=== PATIENT | male | born 1955 | race Caucasian/White ===

== ENCOUNTER 2017-12-26 11:46 | Inpatient (IN) ==
[2017-12-26 12:04] VITALS: BMI 37.7
[2017-12-26] MEDS ORDERED: TYLENOL 325 MG TAB PO STA (12:09)
--- NOTE | 2017-12-26 12:09 | DR.GENAD ---
HPI - PCP Primary Care Physician: maulik riggins - Complaint/Symptoms Chief Complaint Doctors Comments: Patient is complaining of right side pain for the past 12 hours onset last night with cough, cold, fever and wheezing. States his cough is non-productive. States he took a breathing treatment at the house. He stopped smoking in 2011 and denies alcohol usage. He denies chest pain presently. State he has been having swelling of his feet and legs for a while. He denies any recent trauma. Chief Complaint:: family stated he woke up this morning running a fever, coughing and left rib pain from the cough. family stated last time he was like this he had pneumonia - Nurses notes reviewed Nurses Notes Review: Yes - Source History Provided: Patient, Family Member - Mode of Arrival Mode of Arrival: Wheelchair - Timing Onset of Chief Complaint: 12/26/17 Came on: Gradually - Duration Duration: Constant How lon Duration: Hours - Location Location: Right side pain - Severity Severity: Moderate - Modifying Factors Worsens:: movement Improves:: nothing PMH - PMH Past Medical History: Yes Past Medical History: COPD Past Surgical History: Yes - Family History History of Family Medical Conditions: Yes Family Medical History: Hypertension - Social History Does patient currently use any type of tobacco product: No Have you used tobacco products in the last 12 months: No Type of Tobacco Use: None Does any household member use tobacco: No Alcohol Use: Rarely Do you use any recreational Drugs:: No Lives With: Family Lives Where: Home - infectious screening In the last 2 months have you had wt loss of >10#?: NO Have you had fever, night sweats or hemotysis?: No Have you traveled outside the country in the last 6 months?: No Isolation: Standard ROS - Review of Systems Constitutional: No Symptoms Reported, Fever, Weakness Eyes: No Symptoms Reported. negative: See HPI, Eye Pain, Blurred Vision, Tearing, Discharge, Photophobia, Diplopia, Other ENTM: No Symptoms Reported Respiratoy: No Symptoms Reported, Non-Productive Cough, Short of Breath, Wheezing Cardiovascular: No Symptoms Reported. negative: See HPI, Chest Pain, Edema, Palpitations, Syncope, Cyanosis, Skin Mottling, Other Gastrointestinal/Abdominal: No Symptoms Reported. negative: See HPI, Abdominal Pain, Constipation, Diarrhea, Nausea, Vomiting, Food Intolerance, Other Genitourinary: No Symptoms Reported. negative: See HPI, Discharge, Dysuria, Frequency, Hematuria, Pain, Bleeding, Other Neurological: No Symptoms Reported Musculoskeletal: No Symptoms Reported, Right, Chest wall Integumentary: No Symptoms Reported. negative: See HPI, Change in Color, Change in Hair/Nails, Dryness, Lesions, Lumps, Rash, Itching, Wound, Bruises, Juandice, Other Hematologic/Lymphatic: No Symptoms Reported. negative: See HPI, Anemia, Blood Clots, Easy Bleeding, Easy Bruising, Swollen Glands, Lymphadenopathy, Other Endocrine: No Symptoms Reported Psychiatric: No Symptoms Reported PE - General Limitations: No Limitations General Appearance: Alert, In Distress (moderate) - Head Head Exam: Normal Inspection, Atraumatic, Normocephalic - Eyes Eye exam: Normal Appearance, PERRL, EOMI. negative: Scleral Icterus, Conjunctival Injection, Nystagmus, Miosis, Mydrasis, Periorbital Swelling, Periorbital Tenderness, Other - ENT ENT Exam: Normal Exam, Normal Oropharynx, Normal External Ear Exam, Mucous Membranes Moist, TM's Normal Bilaterally External Ear Exam: Normal External Inspection TM/Canal Exam: Bilateral Normal Nose Exam: Normal Nose Exam Mouth Exam: Normal Inspection. negative: Drooling, Trismus, Lip Swelling, Tongue Elevation, Tongue Swelling, Laceration, Other Throat Exam: Normal Inspection - Neck Neck Exam: Normal Inspection, Full ROM, Trachea Midline. negative: Tenderness, Meningismus, Lymphadenopathy, Thyromegaly, Other - Chest Chest Inspection: Normal Inspection, Symmetric Chest Wall Rise - Respiratory Respiratory Exam: Normal Lung Sounds Bilat, Chest Wall Tenderness (righ chest wall tenderness), Prolonged Expiratory Phase Respiratory Exam: Bilateral Wheezing, Bilateral Decreased Breath Sounds - Cardiovascular Cardiovascular Exam: Regular Rate, Normal Rhythm, Normal Heart Sounds - Abdominal Exam Abdominal Exam: Normal Inspection, Normal Bowel Sounds, Soft, Tenderness (RUQ tenderness) Abdominal Tenderness: RUQ, Mild - Extremities Extremities Exam: Normal Inspection, Full ROM, Normal Capillary Refill. negative: Tenderness, Edema, Joint Swelling, Calf Tenderness, Other - Back Back Exam: Normal Inspection, Full ROM, Tenderness, (R) CVA Tenderness - Neurologic Neurological Exam: Alert, Oriented X3, CN II-XII Intact, Reflexes Normal. negative: Normal Gait (gait not tested) - Psychiatric Psychiatric Exam: Normal Affect, Normal Mood - Skin Skin Exam: Warm, Dry, Intact, Normal Color - Vital Signs Vitals: Temperature 101.0 F Pulse Rate [Right Radial] 113 Pulse Rate 107 Respiratory Rate 18 Blood Pressure [Left Arm] 85/57 Blood Pressure 123/94 O2 Sat by Pulse Oximetry 100 Course - Consultation Called: 14:13 Call Returned: 14:13 (Dr. Gross to admit) - Education/Counseling Education/Counseling: Patient, Family Educated On: Treatment, Diagnosis, Needs for Follow Up ROR - Labs Reviewed Laboratory Results Reviewed?: Yes (All labs and x-ray results reviewed and discussed with patient) Result Diagrams: 12/26/17 12:18 12/26/17 12:18 - XRAY XRAY Interpreted by: Radiologist (CXR: Segmental right upper lobe consolidation consistent with pneumonia) - Labs Reviewed Laboratory: 12/26/17 13:07 Sputum - Expectorated Sputum - Final WBC 25.0 X10^3/uL (3.6-10.0) H 12/26/17 12:18 RBC 4.85 X10^6/uL (4.7-6.0) 12/26/17 12:18 Hgb 15.5 g/dL (13.5-18.0) 12/26/17 12:18 Hct 46.2 % (42.0-54.0) 12/26/17 12:18 MCV 95.3 fL (80.0-100.0) 12/26/17 12:18 MCH 32.1 pg (27.0-34.0) 12/26/17 12:18 MCHC 33.7 g/dL (33.0-35.0) 12/26/17 12:18 RDW 13.6 % (11.6-16.5) 12/26/17 12:18 Plt Count 226 X10^3/uL (150.0-450.0) 12/26/17 12:18 Plt Count Comment Adequate (ADEQUATE) 12/26/17 12:18 MPV 9.0 fL (7.4-11.0) 12/26/17 12:18 Neut % (Auto) 90.1 % (42.0-75.0) H 12/26/17 12:18 Lymph % (Auto) 4.0 % (21.0-51.0) L 12/26/17 12:18 [place] % (Auto) 5.7 % (0.0-13.0) 12/26/17 12:18 Eos % (Auto) 0.0 % (0.9-2.9) L 12/26/17 12:18 Baso % (Auto) 0.2 % (0.2-1.0) 12/26/17 12:18 Neut # (Auto) 22.6 x10^3/uL (2.2-4.8) H 12/26/17 12:18 Lymph # (Auto) 1.0 X10^3/uL (1.3-2.9) L 12/26/17 12:18 [place] # (Auto) 1.4 x10^3/uL (0.3-0.8) H 12/26/17 12:18 Eos # (Auto) 0.0 x10^3/uL (0.0-0.2) 12/26/17 12:18 Baso # (Auto) 0.0 X10^3/uL (0.0-0.1) 12/26/17 12:18 Absolute Nucleated RBC 0.1 /100WBC 12/26/17 12:18 Total Counted 100 12/26/17 12:18 Neutrophils % (Manual) 74 % (39-76) 12/26/17 12:18 Band Neutrophils % 9 % (0-10) 12/26/17 12:18 Lymphocytes % (Manual) 7 % (13-43) L 12/26/17 12:18 Monocytes % (Manual) 10 % (4-9) H 12/26/17 12:18 Plt Morphology Comment Normal (NORMAL) 12/26/17 12:18 RBC Morphology Normal (NORMAL) 12/26/17 12:18 INR Target Range - 12/26/17 12:18 INR 1.16 (0.8-1.3) 12/26/17 12:18 APTT 27.8 SECONDS (22.9-36.5) 12/26/17 12:18 PTT Comment - 12/26/17 12:18 D-Dimer 232 ng/mL (0-400) 12/26/17 12:18 Sample Site Rb 12/26/17 12:43 ABG pH 7.460 (7.35-7.45) H 12/26/17 12:43 ABG pCO2 38.0 mmHg (35.0-45.0) 12/26/17 12:43 ABG pO2 54.0 mmHg (80.0-100.0) L 12/26/17 12:43 ABG HCO3 27.0 mmol/L (22-26) H 12/26/17 12:43 ABG O2 Saturation 89.0 % (90-100) L 12/26/17 12:43 ABG Base Excess 3.1 mmol/L (-2.0-2.0) H 12/26/17 12:43 Renato Test N/a 12/26/17 12:43 A-a Gradient 98.0 mmHg 12/26/17 12:43 FiO2 28 12/26/17 12:43 Blood Gas Comments Pt leo well. cdn 12/26/17 12:43 Sodium 138 mmol/L (136-145) 12/26/17 12:18 Corrected Sodium 139 mmol/L (136-145) 12/26/17 12:18 Potassium 4.9 mmol/L (3.5-5.1) 12/26/17 12:18 Chloride 103 mmol/L (98-107) 12/26/17 12:18 Carbon Dioxide 29.2 mmol/L (21-32) 12/26/17 12:18 BUN 25 mg/dL (7-18) H 12/26/17 12:18 Creatinine 1.95 mg/dL (0.70-1.30) H 12/26/17 12:18 Est GFR (MDRD) Af Amer 45 (>60) L 12/26/17 12:18 Est GFR (MDRD) Non-Af 37 (>60) L 12/26/17 12:18 Glucose 157 mg/dL (65-99) H 12/26/17 12:18 Calcium 8.3 mg/dL (8.5-10.1) L 12/26/17 12:18 Corrected Calcium 8.9 mg/dL (8.5-10.1) 12/26/17 12:18 Magnesium 1.3 mg/dL (1.7-2.9) L 12/26/17 12:18 Total Bilirubin 3.40 mg/dL (0.2-1.0) H 12/26/17 12:18 AST 56 Units/L (15-37) H 12/26/17 12:18 ALT 51 Units/L (12-78) 12/26/17 12:18 Alkaline Phosphatase 58 Units/L (46-116) 12/26/17 12:18 Creatine Kinase 105 Units/L (39-308) 12/26/17 12:18 CK-MB (CK-2) < 1.0 ng/mL (0-4.0) 12/26/17 12:18 CK/CKMB % Calc 1.0 % (<4) 12/26/17 12:18 Troponin I < 0.02 ng/mL (0-1.5) 12/26/17 12:18 Total Protein 6.8 g/dL (6.4-8.2) 12/26/17 12:18 Albumin 3.2 g/dL (3.4-5.0) L 12/26/17 12:18 Globulin 3.6 g/dL (2.5-4.5) 12/26/17 12:18 Albumin/Globulin Ratio 0.9 Ratio (1.1-2.1) L 12/26/17 12:18 - Diagnosis Discharge Problem: Hypotension, SIRS (systemic inflammatory response syndrome), COPD exacerbation, Hypoxemia, Chronic kidney disease (CKD) Right upper lobe pneumonia Qualifiers: Pneumonia type: due to unspecified organism Qualified Code(s): J18.1 - Lobar pneumonia, unspecified organism - Discharge Plan Disposition: ADMITTED INPATIENT Condition: Stable - Follow ups/Referrals Follow ups/Referrals: MAULIK RIGGINS [Primary Care Provider] - 3 days - Instructions
[2017-12-26] MEDS ORDERED: DUONEB 0.5 MG/3 MG NEB ONE (12:10)
[2017-12-26] MEDS ORDERED: DUONEB 0.5 MG/3 MG ONE (12:24)
[2017-12-26] MEDS: NS 1000 ML 1,000 ML IV SCH ×3 (12:26→16:39)
[2017-12-26] MEDS ORDERED: TYLENOL 325 MG TAB PO ONE (12:27)
[2017-12-26 12:38] LABS: BASOPHILS % (AUTO) 0.2 % (0.2-1.0); HEMATOCRIT 46.2 % (42.0-54.0); HEMOGLOBIN 15.5 g/dL (13.5-18.0); MEAN CORPUSCULAR HEMOGLOBIN 32.1 pg (27.0-34.0); MEAN CORPUSCULAR HGB CONC 33.7 g/dL (33.0-35.0); MEAN CORPUSCULAR VOLUME 95.3 fL (80.0-100.0); MONOCYTES # (AUTO) 1.4 x10^3/uL (0.3-0.8); MONOCYTES % (AUTO) 5.7 % (0.0-13.0); NEUTROPHILS # (AUTO) 22.6 x10^3/uL (2.2-4.8); NEUTROPHILS % (AUTO) 90.1 % (42.0-75.0); PLATELET COUNT 226 X10^3/uL (150.0-450.0); RED BLOOD COUNT 4.85 X10^6/uL (4.7-6.0); RED CELL DISTRIBUTION WIDTH 13.6 % (11.6-16.5)
[2017-12-26 12:49] LABS: ABG BASE EXCESS 3.1 mmol/L (-2.0-2.0); FRACTIONATED INSPIRED OXYGEN 28
--- NOTE | 2017-12-26 12:54 | RAD ---
Examination: AP chest History: Rib pain, cough and fever Findings: Normal heart size with essentially clear left lung. There is a dense area of airspace consolidation involving the right upper lobe. There is no evidence for pneumothorax or pleural effusion. Impression: Segmental right upper lobe consolidation consistent with pneumonia. Follow-up indicated. Reported By:
[2017-12-26 12:57] LABS: BLOOD UREA NITROGEN 25 mg/dL (7-18); CALCIUM 8.3 mg/dL (8.5-10.1); CARBON DIOXIDE 29.2 mmol/L (21-32); CHLORIDE 103 mmol/L (98-107); COR NA(FOR HYPERGLY) 139 mmol/L (136-145); CREATININE 1.95 mg/dL (0.70-1.30); SODIUM 138 mmol/L (136-145); TROPONIN I < 0.02 ng/mL (0-1.5); eGFR NON BLACK RACES 37 (>60)
[2017-12-26 12:58] LABS: BAND NEUTROPHILS % 9 % (0-10)
[2017-12-26 13:00] LABS: ALANINE AMINOTRANSFERASE 51 Units/L (12-78); ALBUMIN 3.2 g/dL (3.4-5.0); ALKALINE PHOSPHATASE 58 Units/L (46-116); ASPARTATE AMINO TRANSFERASE 56 Units/L (15-37); COR CA(FOR HYPOALB) 8.9 mg/dL (8.5-10.1); CREATINE KINASE 105 Units/L (39-308); CREATINE KINASE MB < 1.0 ng/mL (0-4.0); MAGNESIUM 1.3 mg/dL (1.7-2.9); PLATELET MORPHOLOGY COMMENT NORMAL (NORMAL); TOTAL PROTEIN 6.8 g/dL (6.4-8.2)
[2017-12-26] MEDS ORDERED: SALINE 3% 15 ML NEB TX NEB ONE (13:00)
[2017-12-26] MEDS ORDERED: SALINE 3% 15 ML NEB TX ONE (13:03)
[2017-12-26] MEDS ORDERED: NS 1000 ML 500 ML IV ONE (13:39)
[2017-12-26] MEDS: LEVAQUIN PREMIX IV 750 MG 750 MG/150 ML BAG IV SCH (13:41)
[2017-12-26] MEDS ORDERED: NS 1000 ML 1,000 ML IV ONE (14:08)
[2017-12-26] MEDS ORDERED: ROCEPHIN VIAL 1 GRAM IVP ONE (14:08)
[2017-12-26] MEDS ORDERED: TUSSIONEX PENNKINETIC SUSP PO PRN (14:17)
[2017-12-26] MEDS ORDERED: ZOFRAN INJ 4 MG VIAL ONE (14:33)
[2017-12-26] MEDS ORDERED: ROCEPHIN VIAL 1 GRAM ONE (14:41)
[2017-12-26] MEDS: DOPAMINE IV PREMIX 400 MG/250 ML 400 MG/250 ML BAG IV PRN ×2 (14:42→20:25)
[2017-12-26] MEDS ORDERED: ZOFRAN INJ 4 MG VIAL IVP ONE (14:43)
[2017-12-26] MEDS: ZOFRAN INJ 4 MG VIAL IVP PRN (15:50)
[2017-12-26] MEDS ORDERED: MORPHINE SULFATE INJ 2 MG INJ IVP ONE (16:11)
[2017-12-26] MEDS ORDERED: MORPHINE SULFATE INJ 2 MG INJ ONE (16:12)
[2017-12-26] MEDS ORDERED: PHENERGAN INJ 25 MG ONE (16:12)
[2017-12-26] MEDS ORDERED: PHENERGAN INJ 25 MG IV ONE (16:12)
[2017-12-26] MEDS ORDERED: XOPENEX 1.25 MG/3 ML NEBULE NEB ONE (16:22)
[2017-12-26] MEDS: ZOSYN VIAL 4.5 GRAMS 4.5 G in NS 100 ML IV + SPIKE MINIBAG* 100 ML IV SCH ×2 (16:38→22:36)
[2017-12-26] MEDS: DUONEB 0.5 MG/3 MG NEB SCH ×2 (17:00→21:47)
[2017-12-26] MEDS ORDERED: FLUVIRIN IM ONE (17:45)
[2017-12-26] MEDS ORDERED: PREVNAR 13 IM ONE (17:45)
[2017-12-26] MEDS: ROBITUSSIN DM PO SCH ×2 (18:32→20:24)
[2017-12-26] MEDS: NS 1/2 1000 ML IV 1,000 ML IV SCH (18:33)
[2017-12-26 19:09] LABS: CREATINE KINASE 107 Units/L (39-308); CREATINE KINASE MB < 1.0 ng/mL (0-4.0); TROPONIN I < 0.02 ng/mL (0-1.5)
[2017-12-26 19:10] LABS: CKMB % 0.9 % (<4)
--- NOTE | 2017-12-26 19:48 | DR.H&P ---
H&P History & Physical for Day of: H&P Date: 12/26/17 Chief Complaint Chief Complaint: SOB, RIGHT SIDED CHEST PAIN AND HYPOTENSION. Allergies Allergies Allergy/AdvReac Type Severity Reaction Status Date / Time No Known Drug Allergies Allergy Verified 12/26/17 17:28 History of Present Illness History of Present Illness: PATIENT IS 62YR OLD WHITE MALE THAT IS ADMITTED TO HOSPITAL THROUGH THE ED WITH RIGHT SIDED PNEUMONIA. PATIENT SUDDENLY DEVELOP FEVER WITH CHILLS LAST NIGHT WITH INCREASING SOB. HE HAD NON PRODUCTIVE COUGH. TOOK NEB TREATMENT AND MEDICATION FOR FEVER. CONTNUE TO FEEL WORSE. CAME TO ED WHERE PNEUMONIA RIGHT UPPER LOBE WAS DIAGNOSE. PATIENT HAD HYPOTENSION WELL AND WAS STARTED ON IV FLUIDS AND DOPAMINE. HEWAS ADMITTED TO ICU. Past Medical History Past Medical History: COPD Family History Family Medical History: Cancer Social History Does patient currently use any type of tobacco product: No Have you used tobacco products in the last 12 months: No Type of Tobacco Use: None Does any household member use tobacco: No Alcohol Use: None Drug Use: None Medications Home Medications: No Known Drug Allergies Allergy (Verified 12/26/17 17:28) CONTINUE taking the following medications tamsulosin 0.4 mg PO HS 12/26/17 [History] Review of Systems Constitutional: Fever, Chills, Sweats, Weakness and Malaise Eyes: No Symptoms Reported Respiratory: Cough, Shortness of Breath, Pleuritic Pain and Wheezing Cardiovascular: Chest Pain (RIGHT SIDED CHEST PAIN.) Gastrointestinal: Nausea Genitourinary: No Symptoms Reported Musculoskeletal: Arm Pain and Back Pain Skin: No Symptoms Reported Neurological: Weakness Physical Exam Vital Signs: Temperature 100.1 F Pulse Rate [Right Radial] 134 Pulse Rate 132 Respiratory Rate 19 Blood Pressure [Left Arm] 92/51 Blood Pressure 92/51 O2 Sat by Pulse Oximetry 89 Oriented: Time, Person and Place Eyes: Normal Ear: Normal Nose: Normal Throat: Normal Respiratory: Rhonchi Throughout, Wheezes Throughout, RML Rales and RLL Rales Cardiovascular: Tachycardia : Normal Auscultation: Bowel Sounds: Normal Palpation: Normal Tenderness: Normal Skin: Diaphoresis Psychiatric: Normal Mood Description: Appropriate Affect: Normal Speech Pattern: Clear and Appropriate Assessment/Plan (1) Right upper lobe pneumonia: Qualifiers: Aspiration pneumonia type: Pneumonia type: due to unspecified organism Qualified Code(s): J18.1 - Lobar pneumonia, unspecified organism Status: Acute Plan: WILL FIVE ANTIBIOTICS PER PNEUMONIA PROTOCOL. (2) COPD exacerbation: Status: Acute Plan: WILL GIVE SUPPLEMENTARY OXYGEN AND NEB TREATMENTS. IF INDICATED, USE BI-PAP FOR OXYGENATION. (3) Hypotension: Qualifiers: Hypotension type: Trimester: Status: Acute Plan: USE THE SEPSIS PROTOCOL WELL IV DOPAMINE AND CONTINUE TO MONITOR. (4) Hypoxemia: Status: Acute Plan: BI-PAP FOR OXYGENATION IF PATIENT CONTINUE TO BE HYPOXIC.
[2017-12-26] MEDS: MAGNESIUM SULFATE 1 GRAM/100 mL PREMIX 1 GM/100 ML BAG IV PRN ×4 (20:27→23:30)
[2017-12-26] MEDS: PERCOCET TAB 5/325 MG PO PRN (21:34)
[2017-12-27] MEDS: NS 1000 ML 1,000 ML IV SCH ×6 (00:33→23:39)
[2017-12-27 00:53] LABS: CKMB % 1.3 % (<4); CREATINE KINASE 86 Units/L (39-308); CREATINE KINASE MB 1.1 ng/mL (0-4.0); TROPONIN I < 0.02 ng/mL (0-1.5)
[2017-12-27] MEDS: DUONEB 0.5 MG/3 MG NEB SCH ×6 (01:43→20:19)
[2017-12-27] MEDS: DOPAMINE IV PREMIX 400 MG/250 ML 400 MG/250 ML BAG IV PRN ×2 (02:40→12:47)
[2017-12-27] MEDS: PERCOCET TAB 5/325 MG PO PRN ×3 (04:45→21:32)
[2017-12-27] MEDS: NS 1/2 1000 ML IV 1,000 ML IV SCH ×2 (05:06→20:31)
[2017-12-27] MEDS: ZOSYN VIAL 4.5 GRAMS 4.5 G in NS 100 ML IV + SPIKE MINIBAG* 100 ML IV SCH ×3 (05:31→21:32)
[2017-12-27 05:47] LABS: LACTIC ACID 2.1 mmol/L (0.4-2.0)
[2017-12-27 06:37] LABS: BASOPHILS % (AUTO) 0.2 % (0.2-1.0); HEMATOCRIT 46.7 % (42.0-54.0); HEMOGLOBIN 15.8 g/dL (13.5-18.0); LYMPHOCYTES # (AUTO) 0.9 X10^3/uL (1.3-2.9); LYMPHOCYTES % (AUTO) 3.9 % (21.0-51.0); MEAN CORPUSCULAR HEMOGLOBIN 32.6 pg (27.0-34.0); MEAN CORPUSCULAR HGB CONC 33.8 g/dL (33.0-35.0); MEAN CORPUSCULAR VOLUME 96.4 fL (80.0-100.0); MEAN PLATELET VOLUME 9.3 fL (7.4-11.0); MONOCYTES # (AUTO) 0.9 x10^3/uL (0.3-0.8); MONOCYTES % (AUTO) 3.9 % (0.0-13.0); NEUTROPHILS # (AUTO) 21.5 x10^3/uL (2.2-4.8); PLATELET COUNT 204 X10^3/uL (150.0-450.0); RED BLOOD COUNT 4.85 X10^6/uL (4.7-6.0); RED CELL DISTRIBUTION WIDTH 13.6 % (11.6-16.5); WHITE BLOOD COUNT 23.3 X10^3/uL (3.6-10.0)
[2017-12-27 06:38] LABS: ALBUMIN 2.6 g/dL (3.4-5.0); CALCIUM 7.6 mg/dL (8.5-10.1); CARBON DIOXIDE 26.5 mmol/L (21-32); COR CA(FOR HYPOALB) 8.7 mg/dL (8.5-10.1); CREATININE 1.52 mg/dL (0.70-1.30); TOTAL PROTEIN 6.6 g/dL (6.4-8.2)
[2017-12-27 07:16] LABS: ABG BASE EXCESS -1.6 mmol/L (-2.0-2.0); ABG HCO3 27.4 mmol/L (22-26)
[2017-12-27 07:17] LABS: FRACTIONATED INSPIRED OXYGEN 50
[2017-12-27 08:04] LABS: BAND NEUTROPHILS % 30 % (0-10); METAMYELOCYTES % 9
[2017-12-27 08:05] LABS: PLATELET MORPHOLOGY COMMENT NORMAL (NORMAL)
[2017-12-27] MEDS: LEVAQUIN PREMIX IV 750 MG 750 MG/150 ML BAG IV SCH (08:56)
[2017-12-27] MEDS: ROBITUSSIN DM PO SCH ×4 (08:56→20:33)
[2017-12-27] MEDS ORDERED: LEVAQUIN PREMIX IV 750 MG 750 MG/150 ML BAG IV SCH (09:00)
--- NOTE | 2017-12-27 09:04 | CT ---
STUDY: CT CHEST WITHOUT CONTRAST HISTORY: Pneumonia. Comparison: Chest radiograph from December 26, 2017. Technique: Multiple axial images of the chest were obtained from the thoracic inlet to the upper abdomen without the administration of IV contrast. Findings: Several lymph nodes are noted within the mediastinum. No pathologically enlarged lymph nodes are identified. There is no significant pericardial effusion. The aorta has a normal appearance. The central pulmonary arterial system has a normal nonenhanced appearance. Evaluation of the lung parenchyma shows consolidative airspace opacity in the right lower lobe. There is atelectasis and/or airspace opacity in the dependent portion of the left lower lobe. no evidence of consolidation, significant infiltrate, effusion, or pneumothorax. No pulmonary nodule or mass is identified. The bony thorax is unremarkable in its appearance. The visualized portions of the upper abdomen are grossly unremarkable. IMPRESSION: 1. Extensive consolidative airspace opacity in the right lower lobe, consistent with stated history of pneumonia. 2. Atelectasis it and/or airspace opacity in the left lower lobe. Reported By:
[2017-12-27] MEDS ORDERED: PULMICORT NEB TX 0.5 MG NEB ONE (09:06)
[2017-12-27] MEDS: PULMICORT NEB TX 0.5 MG NEB SCH ×2 (09:13→20:19)
[2017-12-27] MEDS: MUCOMYST 20% 200 MG/ML NEB SCH ×3 (12:25→20:19)
[2017-12-27] MEDS: ZOFRAN INJ 4 MG VIAL IVP PRN (16:17)
[2017-12-27] MEDS: FLOMAX PO SCH (21:31)
--- NOTE | 2017-12-27 22:11 | PCM.PROG ---
Progress Note Progress Note for Day of Date of Exam: 12/27/17 Subjective Subjective: PATIENT IS 62YR OLD WHITE MALE WITH RUL PNEUMONIA. PATIENT IS SEPTIC AND HYPOTENSIVE. HE WAS PLACE ON BI-PAP THIS AM. HIS BP IS STILL LOW. LATIC ACID IMPROVING AND PATIENT IS IMPROVING. WILL CONTINUE CURRENT MANAGEMENT. Past Medical Family Social History Past Med/Fam/Surg Hx: No changes since H&P Allergies: Allergies No Known Drug Allergies Allergy (Verified 12/26/17 17:28) Review of Systems ROS: No change since H&P Vital Signs and I&O's Vital Signs: Temperature 97.2 F Pulse Rate [Right Radial] 106 Pulse Rate 104 Respiratory Rate 15 Blood Pressure [Left Arm] 101/64 Blood Pressure 106/62 O2 Sat by Pulse Oximetry 95 Intake and Output: Intake & Output 12/24/17 12/25/17 12/26/17 12/27/17 23:59 23:59 23:59 23:59 Intake Total 2499 / 2499 4840 / 4840 Output Total 1700 / 1700 Balance 2499 / 2499 3140 / 3140 Physical Exam Oriented: Time, Person and Place Eyes: Normal Ear: Normal Nose: Normal Throat: Normal Cardiovascular: Tachycardia : Normal Auscultation: Bowel Sounds: Normal Tenderness: Normal Skin: Diaphoresis Psychiatric: Normal Mood Description: Anxious and Appropriate Affect: Normal Speech Pattern: Clear and Appropriate Laboratory and Diagnostics Result Diagrams: 12/27/17 05:00 12/27/17 05:00 Labs: 12/26/17 13:07 Sputum - Expectorated Sputum Sputum Culture - Preliminary 12/26/17 13:07 Sputum - Expectorated Sputum - Final Laboratory WBC 23.3 X10^3/uL (3.6-10.0) H 12/27/17 05:00 RBC 4.85 X10^6/uL (4.7-6.0) 12/27/17 05:00 Hgb 15.8 g/dL (13.5-18.0) 12/27/17 05:00 Hct 46.7 % (42.0-54.0) 12/27/17 05:00 MCV 96.4 fL (80.0-100.0) 12/27/17 05:00 MCH 32.6 pg (27.0-34.0) 12/27/17 05:00 MCHC 33.8 g/dL (33.0-35.0) 12/27/17 05:00 RDW 13.6 % (11.6-16.5) 12/27/17 05:00 Plt Count 204 X10^3/uL (150.0-450.0) 12/27/17 05:00 Plt Count Comment Adequate (ADEQUATE) 12/27/17 05:00 MPV 9.3 fL (7.4-11.0) 12/27/17 05:00 Neut % (Auto) 92.0 % (42.0-75.0) H 12/27/17 05:00 Lymph % (Auto) 3.9 % (21.0-51.0) L 12/27/17 05:00 [place] % (Auto) 3.9 % (0.0-13.0) 12/27/17 05:00 Eos % (Auto) 0.0 % (0.9-2.9) L 12/27/17 05:00 Baso % (Auto) 0.2 % (0.2-1.0) 12/27/17 05:00 Neut # (Auto) 21.5 x10^3/uL (2.2-4.8) H 12/27/17 05:00 Lymph # (Auto) 0.9 X10^3/uL (1.3-2.9) L 12/27/17 05:00 [place] # (Auto) 0.9 x10^3/uL (0.3-0.8) H 12/27/17 05:00 Eos # (Auto) 0.0 x10^3/uL (0.0-0.2) 12/27/17 05:00 Baso # (Auto) 0.0 X10^3/uL (0.0-0.1) 12/27/17 05:00 Absolute Nucleated RBC 0.0 /100WBC 12/27/17 05:00 Total Counted 100 12/27/17 05:00 Neutrophils % (Manual) 48 % (39-76) 12/27/17 05:00 Band Neutrophils % 30 % (0-10) H 12/27/17 05:00 Lymphocytes % (Manual) 7 % (13-43) L 12/27/17 05:00 Monocytes % (Manual) 6 % (4-9) 12/27/17 05:00 Metamyelocytes % 9 12/27/17 05:00 Plt Morphology Comment Normal (NORMAL) 12/27/17 05:00 RBC Morphology Normal (NORMAL) 12/27/17 05:00 INR Target Range - 12/26/17 12:18 INR 1.16 (0.8-1.3) 12/26/17 12:18 APTT 27.8 SECONDS (22.9-36.5) 12/26/17 12:18 PTT Comment - 12/26/17 12:18 D-Dimer 232 ng/mL (0-400) 12/26/17 12:18 Sample Site Right brachial 12/27/17 07:05 ABG pH 7.220 (7.35-7.45) L 12/27/17 07:05 ABG pCO2 67.0 mmHg (35.0-45.0) H* 12/27/17 07:05 ABG pO2 50.0 mmHg (80.0-100.0) L 12/27/17 07:05 ABG HCO3 27.4 mmol/L (22-26) H 12/27/17 07:05 ABG O2 Saturation 76.0 % (90-100) L* 12/27/17 07:05 ABG Base Excess -1.6 mmol/L (-2.0-2.0) 12/27/17 07:05 Renato Test Na 12/27/17 07:05 A-a Gradient 223.0 mmHg 12/27/17 07:05 FiO2 50 12/27/17 07:05 Blood Gas Comments Jeny well jts 12/27/17 07:05 Sodium 139 mmol/L (136-145) 12/27/17 05:00 Corrected Sodium 140 mmol/L (136-145) 12/27/17 05:00 Potassium 4.6 mmol/L (3.5-5.1) 12/27/17 05:00 Chloride 106 mmol/L (98-107) 12/27/17 05:00 Carbon Dioxide 26.5 mmol/L (21-32) 12/27/17 05:00 BUN 31 mg/dL (7-18) H 12/27/17 05:00 Creatinine 1.52 mg/dL (0.70-1.30) H 12/27/17 05:00 Est GFR (MDRD) Af Amer 60 (>60) 12/27/17 05:00 Est GFR (MDRD) Non-Af 49 (>60) L 12/27/17 05:00 Glucose 150 mg/dL (65-99) H 12/27/17 05:00 Lactic Acid 2.1 mmol/L (0.4-2.0) H 12/27/17 05:00 Calcium 7.6 mg/dL (8.5-10.1) L 12/27/17 05:00 Corrected Calcium 8.7 mg/dL (8.5-10.1) 12/27/17 05:00 Magnesium 2.6 mg/dL (1.7-2.9) 12/27/17 05:00 Total Bilirubin 2.00 mg/dL (0.2-1.0) H 12/27/17 05:00 AST 29 Units/L (15-37) 12/27/17 05:00 ALT 44 Units/L (12-78) 12/27/17 05:00 Alkaline Phosphatase 48 Units/L (46-116) 12/27/17 05:00 Creatine Kinase 86 Units/L (39-308) 12/27/17 00:24 CK-MB (CK-2) 1.1 ng/mL (0-4.0) 12/27/17 00:24 CK/CKMB % Calc 1.3 % (<4) 12/27/17 00:24 Troponin I < 0.02 ng/mL (0-1.5) 12/27/17 00:24 B-Natriuretic Peptide 47.2 pg/mL (0-79) 12/26/17 12:18 Total Protein 6.6 g/dL (6.4-8.2) 12/27/17 05:00 Albumin 2.6 g/dL (3.4-5.0) L 12/27/17 05:00 Globulin 4.0 g/dL (2.5-4.5) 12/27/17 05:00 Albumin/Globulin Ratio 0.7 Ratio (1.1-2.1) L 12/27/17 05:00 Radiology Reviewed: Yes (CT CHEST REPORT REVIEWED.) Plan (1) Right upper lobe pneumonia: Status: Acute Qualifiers: Aspiration pneumonia type: Pneumonia type: due to unspecified organism Qualified Code(s): J18.1 - Lobar pneumonia, unspecified organism Plan: PNEUMONIA WITH SEPSIS ON ANTIBIOTICS AND DOPAMINE DRIP AND BI-PAP. LACTIC ACID INPROVING. HE IS FULLY ALERT AND APPEAR TO BE SLIGHTLY IMPROVED. WILL CONTINUE CURRENT MANAGEMENT. WILL CHECK AM LABS. (2) COPD exacerbation: Status: Acute Plan: WILL CONTINUE NEB TREATMENT AND BIPAP. (3) Hypotension: Status: Acute Qualifiers: Hypotension type: Trimester: Plan: CONTINUE IV FLUIDS AND DOPAMINE. BP IMPROVING. (4) Hypoxemia: Status: Acute Plan: WILL CONTINUE BIPAP.
[2017-12-28] MEDS: DUONEB 0.5 MG/3 MG NEB SCH ×6 (00:54→20:40)
[2017-12-28] MEDS: MUCOMYST 20% 200 MG/ML NEB SCH ×6 (00:54→20:40)
[2017-12-28] MEDS: DOPAMINE IV PREMIX 400 MG/250 ML 400 MG/250 ML BAG IV PRN (01:17)
[2017-12-28] MEDS: PERCOCET TAB 5/325 MG PO PRN ×2 (04:07→16:47)
[2017-12-28] MEDS: ZOSYN VIAL 4.5 GRAMS 4.5 G in NS 100 ML IV + SPIKE MINIBAG* 100 ML IV SCH ×3 (05:21→20:59)
[2017-12-28] MEDS: NS 1000 ML 1,000 ML IV SCH ×3 (05:28→14:50)
[2017-12-28 06:00] LABS: LACTIC ACID 1.1 mmol/L (0.4-2.0)
[2017-12-28 06:02] LABS: ALANINE AMINOTRANSFERASE 39 Units/L (12-78); ALBUMIN 2.1 g/dL (3.4-5.0); ALKALINE PHOSPHATASE 52 Units/L (46-116); ASPARTATE AMINO TRANSFERASE 23 Units/L (15-37); BLOOD UREA NITROGEN 31 mg/dL (7-18); CALCIUM 7.6 mg/dL (8.5-10.1); CARBON DIOXIDE 27.3 mmol/L (21-32); CHLORIDE 107 mmol/L (98-107); COR CA(FOR HYPOALB) 9.1 mg/dL (8.5-10.1); COR NA(FOR HYPERGLY) 139 mmol/L (136-145); CREATININE 1.41 mg/dL (0.70-1.30); SODIUM 138 mmol/L (136-145); TOTAL PROTEIN 6.3 g/dL (6.4-8.2); eGFR NON BLACK RACES 54 (>60)
[2017-12-28 06:13] LABS: BASOPHILS % (AUTO) 0.1 % (0.2-1.0); HEMATOCRIT 41.3 % (42.0-54.0); HEMOGLOBIN 13.8 g/dL (13.5-18.0); LYMPHOCYTES # (AUTO) 0.7 X10^3/uL (1.3-2.9); LYMPHOCYTES % (AUTO) 3.7 % (21.0-51.0); MEAN CORPUSCULAR HEMOGLOBIN 32.5 pg (27.0-34.0); MEAN CORPUSCULAR HGB CONC 33.4 g/dL (33.0-35.0); MEAN CORPUSCULAR VOLUME 97.2 fL (80.0-100.0); MEAN PLATELET VOLUME 9.5 fL (7.4-11.0); MONOCYTES # (AUTO) 0.5 x10^3/uL (0.3-0.8); MONOCYTES % (AUTO) 2.7 % (0.0-13.0); NEUTROPHILS # (AUTO) 16.9 x10^3/uL (2.2-4.8); NEUTROPHILS % (AUTO) 93.5 % (42.0-75.0); PLATELET COUNT 175 X10^3/uL (150.0-450.0); RED BLOOD COUNT 4.25 X10^6/uL (4.7-6.0); WHITE BLOOD COUNT 18.1 X10^3/uL (3.6-10.0)
[2017-12-28 06:19] LABS: ABG BASE EXCESS -0.2 mmol/L (-2.0-2.0); ABG HCO3 29.7 mmol/L (22-26)
[2017-12-28 06:21] LABS: FRACTIONATED INSPIRED OXYGEN 50
--- NOTE | 2017-12-28 07:06 | RAD ---
HISTORY: Cough, fever Study: Chest AP portable Comparison: 12/26/2017, CT chest 12/27/2017 Findings: The heart is within normal limits in size. No congestive heart failure is noted. There is consolidation present in the right upper and right lower lobes. The right middle lobe appears clear. The left lung is clear. A right pleural effusion is present. The bony thorax is unremarkable. IMPRESSION: Consolidating pneumonia involving the right upper and right lower lobes Small right pleural effusion Reported By:
[2017-12-28 07:19] LABS: BAND NEUTROPHILS % 10 % (0-10)
[2017-12-28 07:20] LABS: PLATELET MORPHOLOGY COMMENT NORMAL (NORMAL)
[2017-12-28 08:38] LABS: ABG BASE EXCESS 0.2 mmol/L (-2.0-2.0)
[2017-12-28 08:39] LABS: ABG ALLEN TEST POS; ABG HCO3 30.6 mmol/L (22-26); FRACTIONATED INSPIRED OXYGEN 65
[2017-12-28] MEDS: PULMICORT NEB TX 0.5 MG NEB SCH ×3 (08:50→20:40)
[2017-12-28] MEDS: LEVAQUIN PREMIX IV 750 MG 750 MG/150 ML BAG IV SCH (09:59)
[2017-12-28] MEDS: ROBITUSSIN DM PO SCH ×3 (10:01→17:52)
[2017-12-28] MEDS: SOLU-Medrol 40 MG VIAL IVP SCH ×3 (10:02→20:59)
[2017-12-28] MEDS ORDERED: PNEUMOVAX 23 IM ONE (10:41)
[2017-12-28 11:06] LABS: ABG BASE EXCESS 0.1 mmol/L (-2.0-2.0)
[2017-12-28 11:07] LABS: ABG ALLEN TEST POS; FRACTIONATED INSPIRED OXYGEN 85
[2017-12-28] MEDS ORDERED: SODIUM BICARBONATE 8.4% INJ ADULT IVP ONE (11:52)
[2017-12-28 11:55] LABS: ABG BASE EXCESS 0.8 mmol/L (-2.0-2.0)
[2017-12-28 11:56] LABS: ABG HCO3 30.3 mmol/L (22-26); FRACTIONATED INSPIRED OXYGEN 85
[2017-12-28 15:24] LABS: ABG BASE EXCESS 0.4 mmol/L (-2.0-2.0); ABG HCO3 29.9 mmol/L (22-26); FRACTIONATED INSPIRED OXYGEN 85
[2017-12-28] MEDS: LASIX IVP SCH (16:04)
[2017-12-28 16:22] LABS: BILIRUBIN,URINE NEGATIVE (NEGATIVE); BLOOD/HEMOGLOBIN,URINE 1+ (NEGATIVE); GLUCOSE, URINE 2+ (NEGATIVE); KETONES,URINE NEGATIVE (NEGATIVE); LEUKOCYTE ESTERASE ,URINE NEGATIVE (NEGATIVE); NITRITES,URINE NEGATIVE (NEGATIVE); PROTEIN,URINE 2+ (NEGATIVE); UROBILINOGEN,URINE NORMAL (NORMAL)
[2017-12-28 16:34] LABS: AMORPHOUS SEDIMENT,UR TRACE /HPF (NEGATIVE); APPEARANCE,URINE CLEAR (CLEAR); BACTERIA,URINE NEGATIVE /HPF (NEGATIVE); COLOR,URINE YELLOW (YELLOW); MUCUS,URINE FEW /HPF (NEGATIVE); RBC,URINE 0-2 /HPF (NONE SEEN); SQUAMOUS EPITHELIAL CELL,UR RARE /HPF (NEGATIVE)
[2017-12-28] MEDS: FLOMAX PO SCH (20:55)
[2017-12-29] MEDS: MUCOMYST 20% 200 MG/ML NEB SCH ×6 (01:02→20:38)
[2017-12-29] MEDS: DUONEB 0.5 MG/3 MG NEB SCH ×6 (01:02→20:38)
[2017-12-29] MEDS: DOPAMINE IV PREMIX 400 MG/250 ML 400 MG/250 ML BAG IV PRN (02:43)
[2017-12-29] MEDS: LASIX IVP SCH ×4 (02:44→21:22)
[2017-12-29] MEDS: ZOSYN VIAL 4.5 GRAMS 4.5 G in NS 100 ML IV + SPIKE MINIBAG* 100 ML IV SCH ×3 (05:12→21:23)
[2017-12-29] MEDS: SOLU-Medrol 40 MG VIAL IVP SCH (05:12)
[2017-12-29] MEDS: NS 1000 ML 1,000 ML IV SCH ×3 (05:52→16:47)
[2017-12-29 06:30] LABS: BASOPHILS % (AUTO) 0.1 % (0.2-1.0); HEMATOCRIT 39.2 % (42.0-54.0); HEMOGLOBIN 13.2 g/dL (13.5-18.0); LYMPHOCYTES # (AUTO) 0.5 X10^3/uL (1.3-2.9); LYMPHOCYTES % (AUTO) 3.3 % (21.0-51.0); MEAN CORPUSCULAR HEMOGLOBIN 32.7 pg (27.0-34.0); MEAN CORPUSCULAR HGB CONC 33.5 g/dL (33.0-35.0); MEAN CORPUSCULAR VOLUME 97.6 fL (80.0-100.0); MONOCYTES # (AUTO) 0.4 x10^3/uL (0.3-0.8); MONOCYTES % (AUTO) 2.8 % (0.0-13.0); NEUTROPHILS % (AUTO) 93.8 % (42.0-75.0); PLATELET COUNT 191 X10^3/uL (150.0-450.0); RED BLOOD COUNT 4.02 X10^6/uL (4.7-6.0); RED CELL DISTRIBUTION WIDTH 13.7 % (11.6-16.5)
[2017-12-29 07:06] LABS: ALANINE AMINOTRANSFERASE 37 Units/L (12-78); ALBUMIN 2.1 g/dL (3.4-5.0); ALKALINE PHOSPHATASE 57 Units/L (46-116); ASPARTATE AMINO TRANSFERASE 20 Units/L (15-37); BLOOD UREA NITROGEN 27 mg/dL (7-18); CALCIUM 8.1 mg/dL (8.5-10.1); CARBON DIOXIDE 31.7 mmol/L (21-32); CHLORIDE 106 mmol/L (98-107); COR CA(FOR HYPOALB) 9.6 mg/dL (8.5-10.1); COR NA(FOR HYPERGLY) 141 mmol/L (136-145); CREATININE 1.28 mg/dL (0.70-1.30); SODIUM 140 mmol/L (136-145); TOTAL PROTEIN 6.6 g/dL (6.4-8.2); eGFR NON BLACK RACES > 60 (>60)
[2017-12-29 07:38] LABS: ABG BASE EXCESS 3.7 mmol/L (-2.0-2.0); ABG HCO3 33.4 mmol/L (22-26); FRACTIONATED INSPIRED OXYGEN 85
[2017-12-29 07:39] LABS: ABG ALLEN TEST POS
[2017-12-29 07:41] LABS: BAND NEUTROPHILS % 6 % (0-10); PLATELET MORPHOLOGY COMMENT NORMAL (NORMAL)
--- NOTE | 2017-12-29 08:14 | RAD ---
History: Fever and cough Study: AP chest Comparison: Yesterday Findings: There is focal airspace disease in the anterior segment of the right upper lobe and also at the right lung base not significantly changed. The heart size is normal. There is blunting of the right costophrenic angle. Impression: Persistent right upper and lower lobe pneumonia Reported By:
[2017-12-29] MEDS: PULMICORT NEB TX 0.5 MG NEB SCH ×2 (08:22→20:38)
[2017-12-29] MEDS: LEVAQUIN PREMIX IV 750 MG 750 MG/150 ML BAG IV SCH (09:05)
[2017-12-29] MEDS ORDERED: SOLU-Medrol 125 MG VIAL IVP SCH (10:00)
--- NOTE | 2017-12-29 10:39 | PCM.PROG ---
Progress Note - Progress Note for Day of Date of Exam: 12/28/17 - Subjective Subjective: IS A 62 YEAR OLD PATIENT OF [facility] WHO WAS ADMITTED FOR RIGHT SIDED PNEUMONIA, HYPOXEMIA, SIRS, HYPOTENSION, AND CHRONIC KIDNEY DISEASE. HE WAS ADMITTED TO THE INTENSIVE CARE UNIT ON THE BIPAP AND A DOPAMINE DRIP. HE WAS ALSO STARTED ON FORTAZ AND LEVAQUIN IV ON ADMISSION. T NATALIIA, HE IS LYING IN BED WITH EYES CLOSED. HE IS CURRENTLY UTILIZING THE BIPAP. HE DOES AWAKEN TO VERBAL STIMULI, BUT IS DROWSY. ON EXAMINATION, HEART IS REGULAR IN RATE AND RHYTHM. BILATERAL LUNGS ARE NOTED WITH SCATTERED WHEEZING AND RHONCHI THROUGHOUT. ABDOMEN IS ROUND, SOFT, AND NON-TENDER WITH NORMAL BOWEL SOUNDS NOTED IN ALL QUADRANTS. HIS VITALS THIS MORNING ARE 97.5-92-12-88%BIPAP-99/60. HIS BIPAP SETTING ARE FIO2-65%,IPAP-20,EPAP-10,RATE-25 AT THIS TIME. LABS WERE OBTAINED. ABNORMAL LAB VALUES INCLUDE THE FOLLOWING: WBC 18.1, RBC 4.25, HCT 41.3, BUN 31, CREATININE 1.41, GLUCOSE 158, CALCIUM 7.6, TOTAL PROTEIN 6.3, ALBUMIN 2.1. TODAYS ABG REVEALS: PH 7.180, PC02 82.0, P02 62.0, HC03 30.6, 02 SATURATION 85.0. TODAYS CHEST XRAY REVEALS: Consolidating pneumonia involving the right upper and right lower lobes. Small right pleural effusion. TODAY, WE WILL HAVE RESPIRATORY THERAPY ADJUST BIPAP SETTINGS AND CHECK AN ABG EVERY 2 HOURS UNTIL STABLE. OTHERWISE, WE WILL CONTINUE WITH IV ANTIBIOTICS, RESPIRATORY TREATMENTS, AND CURRENT PLAN OF CARE. WE WILL FOLLOW UP WITH AM LABS AND CHEST XRAY AND CONTINUE TO MONITOR. - Past Medical Family Social History Past Med/Fam/Surg Hx: No changes since H&P Allergies: Allergies No Known Drug Allergies Allergy (Verified 12/26/17 17:28) - Review of Systems ROS: No change since H&P - Vital Signs and I&O's Vital Signs: Temperature 97.9 F Pulse Rate [Right Radial] 106 Pulse Rate 89 Respiratory Rate 14 Blood Pressure [Left Arm] 101/64 Blood Pressure 166/69 O2 Sat by Pulse Oximetry 93 Intake and Output: Intake & Output 12/26/17 12/27/17 12/28/1718 11:59 11:59 11:59 11:59 Intake Total 4741 / 4741 5678 / 5678 4464 / 4464 Output Total 650 / 650 1600 / 1600 2900 / 2900 Balance 4091 / 4091 4078 / 4078 1564 / 1564 - Physical Exam Oriented: Person Eyes: Normal Ear: Normal Nose: Normal Throat: Normal Respiratory: Generalized, Diminished, Wheezes, Rhonchi Cardiovascular: Normal : Normal Auscultation: Bowel Sounds: Normal Palpation: Normal Tenderness: Normal Skin: Normal Musculoskeletal: Normal Psychiatric: Normal Mood Description: Anxious, Appropriate Affect: Normal Speech Pattern: Clear - Laboratory and Diagnostics Result Diagrams: 12/29/17 06:05 12/29/17 06:05 Labs: 12/26/17 13:07 Sputum - Expectorated Sputum Sputum Culture - Final Streptococcus Pneumoniae 12/26/17 13:07 Sputum - Expectorated Sputum - Final 12/26/17 12:22 Blood Blood Culture - Preliminary 12/26/17 12:18 Blood Blood Culture - Preliminary Laboratory WBC 16.0 X10^3/uL (3.6-10.0) H 12/29/17 06:05 RBC 4.02 X10^6/uL (4.7-6.0) L 12/29/17 06:05 Hgb 13.2 g/dL (13.5-18.0) L 12/29/17 06:05 Hct 39.2 % (42.0-54.0) L 12/29/17 06:05 MCV 97.6 fL (80.0-100.0) 12/29/17 06:05 MCH 32.7 pg (27.0-34.0) 12/29/17 06:05 MCHC 33.5 g/dL (33.0-35.0) 12/29/17 06:05 RDW 13.7 % (11.6-16.5) 12/29/17 06:05 Plt Count 191 X10^3/uL (150.0-450.0) 12/29/17 06:05 Plt Count Comment Adequate (ADEQUATE) 12/29/17 06:05 MPV 9.0 fL (7.4-11.0) 12/29/17 06:05 Neut % (Auto) 93.8 % (42.0-75.0) H 12/29/17 06:05 Lymph % (Auto) 3.3 % (21.0-51.0) L 12/29/17 06:05 [place] % (Auto) 2.8 % (0.0-13.0) 12/29/17 06:05 Eos % (Auto) 0.0 % (0.9-2.9) L 12/29/17 06:05 Baso % (Auto) 0.1 % (0.2-1.0) L 12/29/17 06:05 Neut # (Auto) 15.0 x10^3/uL (2.2-4.8) H 12/29/17 06:05 Lymph # (Auto) 0.5 X10^3/uL (1.3-2.9) L 12/29/17 06:05 [place] # (Auto) 0.4 x10^3/uL (0.3-0.8) 12/29/17 06:05 Eos # (Auto) 0.0 x10^3/uL (0.0-0.2) 12/29/17 06:05 Baso # (Auto) 0.0 X10^3/uL (0.0-0.1) 12/29/17 06:05 Absolute Nucleated RBC 0.1 /100WBC 12/29/17 06:05 Total Counted 100 12/29/17 06:05 Neutrophils % (Manual) 83 % (39-76) H 12/29/17 06:05 Band Neutrophils % 6 % (0-10) 12/29/17 06:05 Lymphocytes % (Manual) 8 % (13-43) L 12/29/17 06:05 Monocytes % (Manual) 3 % (4-9) L 12/29/17 06:05 Metamyelocytes % 9 12/27/17 05:00 Plt Morphology Comment Normal (NORMAL) 12/29/17 06:05 RBC Morphology Normal (NORMAL) 12/29/17 06:05 INR Target Range - 12/26/17 12:18 INR 1.16 (0.8-1.3) 12/26/17 12:18 APTT 27.8 SECONDS (22.9-36.5) 12/26/17 12:18 PTT Comment - 12/26/17 12:18 D-Dimer 232 ng/mL (0-400) 12/26/17 12:18 Sample Site Rrad 12/29/17 07:00 ABG pH 7.240 (7.35-7.45) L 12/29/17 07:00 ABG pCO2 78.0 mmHg (35.0-45.0) H* 12/29/17 07:00 ABG pO2 93.0 mmHg (80.0-100.0) 12/29/17 07:00 ABG HCO3 33.4 mmol/L (22-26) H* 12/29/17 07:00 ABG O2 Saturation 96.0 % (90-100) 12/29/17 07:00 ABG Base Excess 3.7 mmol/L (-2.0-2.0) H 12/29/17 07:00 Renato Test Pos 12/29/17 07:00 A-a Gradient 416.0 mmHg 12/29/17 07:00 FiO2 85 12/29/17 07:00 Blood Gas Comments Jeny abg well-mtf 12/29/17 07:00 Sodium 140 mmol/L (136-145) 12/29/17 06:05 Corrected Sodium 141 mmol/L (136-145) 12/29/17 06:05 Potassium 5.0 mmol/L (3.5-5.1) 12/29/17 06:05 Chloride 106 mmol/L (98-107) 12/29/17 06:05 Carbon Dioxide 31.7 mmol/L (21-32) 12/29/17 06:05 BUN 27 mg/dL (7-18) H 12/29/17 06:05 Creatinine 1.28 mg/dL (0.70-1.30) 12/29/17 06:05 Est GFR (MDRD) Af Amer > 60 (>60) 12/29/17 06:05 Est GFR (MDRD) Non-Af > 60 (>60) 12/29/17 06:05 Glucose 150 mg/dL (65-99) H 12/29/17 06:05 Lactic Acid 1.1 mmol/L (0.4-2.0) 12/28/17 05:01 Calcium 8.1 mg/dL (8.5-10.1) L 12/29/17 06:05 Corrected Calcium 9.6 mg/dL (8.5-10.1) 12/29/17 06:05 Magnesium 2.6 mg/dL (1.7-2.9) 12/27/17 05:00 Total Bilirubin 0.50 mg/dL (0.2-1.0) 12/29/17 06:05 AST 20 Units/L (15-37) 12/29/17 06:05 ALT 37 Units/L (12-78) 12/29/17 06:05 Alkaline Phosphatase 57 Units/L (46-116) 12/29/17 06:05 Creatine Kinase 86 Units/L (39-308) 12/27/17 00:24 CK-MB (CK-2) 1.1 ng/mL (0-4.0) 12/27/17 00:24 CK/CKMB % Calc 1.3 % (<4) 12/27/17 00:24 Troponin I < 0.02 ng/mL (0-1.5) 12/27/17 00:24 B-Natriuretic Peptide 47.2 pg/mL (0-79) 12/26/17 12:18 Total Protein 6.6 g/dL (6.4-8.2) 12/29/17 06:05 Albumin 2.1 g/dL (3.4-5.0) L 12/29/17 06:05 Globulin 4.5 g/dL (2.5-4.5) 12/29/17 06:05 Albumin/Globulin Ratio 0.5 Ratio (1.1-2.1) L 12/29/17 06:05 Specimen Type Catherized urine 12/28/17 16:00 Urine Color Yellow (YELLOW) 12/28/17 16:00 Urine Appearance Clear (CLEAR) 12/28/17 16:00 Urine pH 5.0 (5.0 - 8.0) 12/28/17 16:00 Ur Specific [place] 1.020 (1.000-1.030) 12/28/17 16:00 Urine Protein 2+ (NEGATIVE) 12/28/17 16:00 Urine Glucose (UA) 2+ (NEGATIVE) 12/28/17 16:00 Urine Ketones Negative (NEGATIVE) 12/28/17 16:00 Urine Occult Blood 1+ (NEGATIVE) 12/28/17 16:00 Urine Nitrite Negative (NEGATIVE) 12/28/17 16:00 Urine Bilirubin Negative (NEGATIVE) 12/28/17 16:00 Urine Urobilinogen Normal (NORMAL) 12/28/17 16:00 Ur Leukocyte Esterase Negative (NEGATIVE) 12/28/17 16:00 Urine RBC 0-2 /HPF (NONE SEEN) 12/28/17 16:00 Urine WBC 0-2 /HPF (NONE SEEN) 12/28/17 16:00 Ur Squamous Epith Cells Rare /HPF (NEGATIVE) 12/28/17 16:00 Amorphous Sediment Trace /HPF (NEGATIVE) 12/28/17 16:00 Urine Bacteria Negative /HPF (NEGATIVE) 12/28/17 16:00 Urine Mucus Few /HPF (NEGATIVE) 12/28/17 16:00 Ur Culture Indicated? No/not indicated 12/28/17 16:00 - Plan (1) Right upper lobe pneumonia Status: Acute Qualifiers: Pneumonia type: due to unspecified organism Qualified Code(s): J18.1 - Lobar pneumonia, unspecified organism Plan: PNEUMONIA WITH SEPSIS ON ANTIBIOTICS AND DOPAMINE DRIP AND BI-PAP. LACTIC ACID INPROVING. HE IS FULLY ALERT AND APPEAR TO BE SLIGHTLY IMPROVED. WILL CONTINUE CURRENT MANAGEMENT. WILL CHECK AM LABS. (2) COPD exacerbation Status: Acute Plan: WILL CONTINUE NEB TREATMENT AND BIPAP. (3) Sepsis Status: Acute Qualifiers: Sepsis type: sepsis due to unspecified organism Qualified Code(s): A41.9 - Sepsis, unspecified organism Plan: CONTINUE IV ANTIBIOITCS, CONTINUE TO MONITOR (4) Chronic kidney disease (CKD) Status: Acute Qualifiers: Chronic kidney disease stage: unspecified stage Qualified Code(s): N18.9 - Chronic kidney disease, unspecified (5) Hypotension Status: Acute Qualifiers: Hypotension type: unspecified hypotension type Qualified Code(s): I95.9 - Hypotension, unspecified Plan: CONTINUE IV FLUIDS AND DOPAMINE. BP IMPROVING. (6) Hypoxemia Status: Acute Plan: WILL CONTINUE BIPAP. (7) SIRS (systemic inflammatory response syndrome) Status: Acute
[2017-12-29 12:14] LABS: ABG BASE EXCESS 7.1 mmol/L (-2.0-2.0)
[2017-12-29 12:15] LABS: ABG ALLEN TEST POS; ABG HCO3 35.9 mmol/L (22-26)
[2017-12-29] MEDS: PERCOCET TAB 5/325 MG PO PRN (12:24)
[2017-12-29] MEDS ORDERED: DOPAMINE IV PREMIX 400 MG/250 ML 400 MG/250 ML BAG IV PRN (13:44)
[2017-12-29] MEDS ORDERED: PERCOCET TAB 5/325 MG PO PRN (13:45)
[2017-12-29] MEDS ORDERED: ZOFRAN INJ 4 MG VIAL IVP PRN (13:45)
[2017-12-29] MEDS ORDERED: MAGNESIUM SULFATE 1 GRAM/100 mL PREMIX 1 GM/100 ML BAG IV PRN (13:45)
[2017-12-29] MEDS ORDERED: TUSSIONEX PENNKINETIC SUSP PO PRN (13:45)
[2017-12-29] MEDS: LOVENOX INJ 40 MG SYR SC SCH ×2 (15:08→21:22)
[2017-12-29 16:35] LABS: ABG BASE EXCESS 5.5 mmol/L (-2.0-2.0)
[2017-12-29 16:36] LABS: ABG HCO3 33.5 mmol/L (22-26)
[2017-12-29 16:37] LABS: ABG ALLEN TEST POS
[2017-12-29] MEDS ORDERED: NS 1000 ML 1,000 ML ONE (16:46)
[2017-12-29] MEDS: SOLU-Medrol 125 MG VIAL IVP SCH ×2 (16:48→21:22)
[2017-12-29] MEDS: FLOMAX PO SCH (21:23)
[2017-12-29 22:59] LABS: ABG BASE EXCESS 8.9 mmol/L (-2.0-2.0)
[2017-12-29 23:01] LABS: ABG HCO3 36.1 mmol/L (22-26)
[2017-12-30] MEDS: NS 1000 ML 1,000 ML IV SCH ×4 (00:16→15:40)
[2017-12-30] MEDS: DUONEB 0.5 MG/3 MG NEB SCH ×6 (00:39→20:12)
[2017-12-30] MEDS: MUCOMYST 20% 200 MG/ML NEB SCH ×6 (00:39→20:33)
[2017-12-30] MEDS: ZOSYN VIAL 4.5 GRAMS 4.5 G in NS 100 ML IV + SPIKE MINIBAG* 100 ML IV SCH ×3 (05:10→22:00)
[2017-12-30] MEDS: SOLU-Medrol 125 MG VIAL IVP SCH ×5 (05:13→21:59)
[2017-12-30 06:10] LABS: BASOPHILS % (AUTO) 0.1 % (0.2-1.0); HEMATOCRIT 37.8 % (42.0-54.0); HEMOGLOBIN 12.5 g/dL (13.5-18.0); LYMPHOCYTES # (AUTO) 0.6 X10^3/uL (1.3-2.9); LYMPHOCYTES % (AUTO) 4.1 % (21.0-51.0); MEAN CORPUSCULAR HEMOGLOBIN 32.1 pg (27.0-34.0); MEAN CORPUSCULAR HGB CONC 33.2 g/dL (33.0-35.0); MEAN CORPUSCULAR VOLUME 96.6 fL (80.0-100.0); MEAN PLATELET VOLUME 9.2 fL (7.4-11.0); MONOCYTES # (AUTO) 0.6 x10^3/uL (0.3-0.8); NEUTROPHILS # (AUTO) 14.2 x10^3/uL (2.2-4.8); NEUTROPHILS % (AUTO) 91.8 % (42.0-75.0); PLATELET COUNT 200 X10^3/uL (150.0-450.0); RED BLOOD COUNT 3.91 X10^6/uL (4.7-6.0); RED CELL DISTRIBUTION WIDTH 13.9 % (11.6-16.5); WHITE BLOOD COUNT 15.5 X10^3/uL (3.6-10.0)
[2017-12-30 06:38] LABS: ALANINE AMINOTRANSFERASE 28 Units/L (12-78); ALBUMIN 1.8 g/dL (3.4-5.0); ALKALINE PHOSPHATASE 58 Units/L (46-116); ASPARTATE AMINO TRANSFERASE 11 Units/L (15-37); BLOOD UREA NITROGEN 32 mg/dL (7-18); CALCIUM 7.8 mg/dL (8.5-10.1); CARBON DIOXIDE 28.8 mmol/L (21-32); CHLORIDE 109 mmol/L (98-107); COR CA(FOR HYPOALB) 9.6 mg/dL (8.5-10.1); COR NA(FOR HYPERGLY) 145 mmol/L (136-145); CREATININE 1.15 mg/dL (0.70-1.30); SODIUM 143 mmol/L (136-145); TOTAL PROTEIN 5.9 g/dL (6.4-8.2); eGFR NON BLACK RACES > 60 (>60)
[2017-12-30 07:19] LABS: BAND NEUTROPHILS % 5 % (0-10)
[2017-12-30 07:20] LABS: PLATELET MORPHOLOGY COMMENT NORMAL (NORMAL)
--- NOTE | 2017-12-30 07:32 | CT ---
HISTORY: Shortness of breath Study: CTA chest with contrast for pulmonary embolus Comparison: CT chest without contrast 12/27/2017 Technique: Axial post-contrast images with coronal and sagittal reformats. Three-dimensional maximum intensity projection images were obtained in evaluated. Dozen procedures were used with mA/kv adjusted for body size. Findings: There is no evidence for acute pulmonary thromboembolic disease. Examination of the mediastinum demonstrated no evidence for mediastinal masses, enlarged mediastinal or enlarged hilar adenopathy. Bilateral pleural effusions are identified. No chest wall or axillary abnormality is identified. Those portions of the upper abdominal organs visualized were within normal limits. Examination of the lung ahumada again demonstrated dense consolidating pneumonia involving the right upper and right lower lobes not significantly changed in appearance from the prior chest CT examination. There is a right pleural effusion present with underlying compressive atelectasis in the right lower lobe. The left upper lobe is clear. There is compressive atelectasis in the left lower lobe underlying the patient's left pleural effusion. IMPRESSION: No evidence for acute pulmonary thromboembolic disease No change dense consolidating alveolar pneumonia involving the right upper and right lower lobes Bilateral pleural effusions right greater than left with underlying compressive atelectasis in the lower lobes bilaterally Reported By:
[2017-12-30] MEDS: LOVENOX INJ 40 MG SYR SC SCH ×2 (08:47→21:59)
[2017-12-30] MEDS: LASIX IVP SCH ×2 (08:48→22:00)
[2017-12-30] MEDS: PULMICORT NEB TX 0.5 MG NEB SCH ×2 (09:00→20:12)
[2017-12-30] MEDS ORDERED: THEO-DUR TAB 200 MG PO ONE (09:56)
--- NOTE | 2017-12-30 09:59 | PCM.PROG ---
Progress Note - Progress Note for Day of Date of Exam: 12/29/17 - Subjective Subjective: IS A 62 YEAR OLD PATIENT OF [facility] WHO WAS ADMITTED FOR RIGHT SIDED PNEUMONIA, HYPOXEMIA, SIRS, HYPOTENSION, AND CHRONIC KIDNEY DISEASE. HE WAS ADMITTED TO THE INTENSIVE CARE UNIT ON THE BIPAP AND A DOPAMINE DRIP. HE CONTINUES TO UTILIZE THE BIPAP. TODAY, HE IS LYING IN BED WITH EYES CLOSED ON MORNING ROUNDS. HE RESPONDS TO VERBAL STIMULI. ON EXAMINATION, HEART IS REGULAR IN RATE AND RHYTHM. BILATERAL LUNGS ARE NOTED WITH SCATTERED WHEEZING AND RHONCHI THROUGHOUT. ABDOMEN IS ROUND, SOFT, AND NON-TENDER WITH NORMAL BOWEL SOUNDS NOTED IN ALL QUADRANTS. HIS VITALS THIS MORNING ARE 97.9-93-24-98%-103/55. LABS WERE OBTAINED. ABNORMAL LAB VALUES INCLUDE THE FOLLOWING: WBC 16.0, RBC 4.02, HGB 13.2, HCT 39.2, BUN 27, GLUCOSE 150, CALCIUM 8.1, ALBUMIN 2.1. TODAYS ABG REVEALS: PH 7.240, PC02 78.0, P02 93.0, HC03 33.4, O2 SATURATION 96.0. TODAYS CHEST XRAY REVEALS: Persistent right upper and lower lobe pneumonia. TODAY, WE WILL TRANSITION PATIENT TO HIGH FLOW HEATED OX YGEN. WE WILL INCREASE THE SOLU-MEDROL TO 125MG IV Q6H. OTHERWISE, WE WILL CONTINUE WITH IV ANTIBIOTICS, RESPIRATORY TREATMENTS, AND CURRENT PLAN OF CARE. WE WILL FOLLOW UP WITH AM LABS AND CHEST XRAY AND CONTINUE TO MONITOR. - Past Medical Family Social History Past Med/Fam/Surg Hx: No changes since H&P Allergies: Allergies No Known Drug Allergies Allergy (Verified 12/26/17 17:28) - Review of Systems ROS: No change since H&P - Vital Signs and I&O's Vital Signs: Temperature 99.0 F Pulse Rate [Right Radial] 106 Pulse Rate 86 Respiratory Rate 23 Blood Pressure [Left Arm] 101/64 Blood Pressure 98/55 O2 Sat by Pulse Oximetry 88 Intake and Output: Intake & Output 12/27/17 12/28/17 12/29/17 12/30/17 11:59 11:59 11:59 11:59 Intake Total 4741 / 4741 5678 / 5678 4464 / 4464 4514 / 4514 Output Total 650 / 650 1600 / 1600 2900 / 2900 4600 / 4600 Balance 4091 / 4091 4078 / 4078 1564 / 1564 -86 / -86 - Physical Exam Oriented: Person Eyes: Normal Ear: Normal Nose: Normal Throat: Normal Respiratory: Generalized, Diminished, Wheezes, Rhonchi Cardiovascular: Normal : Normal Auscultation: Bowel Sounds: Normal Palpation: Normal Tenderness: Normal Skin: Normal Musculoskeletal: Normal Psychiatric: Normal Mood Description: Anxious, Appropriate Affect: Normal Speech Pattern: Clear - Laboratory and Diagnostics Result Diagrams: 12/30/17 05:32 12/30/17 05:32 Labs: 12/26/17 13:07 Sputum - Expectorated Sputum Sputum Culture - Final Streptococcus Pneumoniae 12/26/17 13:07 Sputum - Expectorated Sputum - Final 12/26/17 12:22 Blood Blood Culture - Preliminary 12/26/17 12:18 Blood Blood Culture - Preliminary Laboratory WBC 15.5 X10^3/uL (3.6-10.0) H 12/30/17 05:32 RBC 3.91 X10^6/uL (4.7-6.0) L 12/30/17 05:32 Hgb 12.5 g/dL (13.5-18.0) L 12/30/17 05:32 Hct 37.8 % (42.0-54.0) L 12/30/17 05:32 MCV 96.6 fL (80.0-100.0) 12/30/17 05:32 MCH 32.1 pg (27.0-34.0) 12/30/17 05:32 MCHC 33.2 g/dL (33.0-35.0) 12/30/17 05:32 RDW 13.9 % (11.6-16.5) 12/30/17 05:32 Plt Count 200 X10^3/uL (150.0-450.0) 12/30/17 05:32 Plt Count Comment Adequate (ADEQUATE) 12/30/17 05:32 MPV 9.2 fL (7.4-11.0) 12/30/17 05:32 Neut % (Auto) 91.8 % (42.0-75.0) H 12/30/17 05:32 Lymph % (Auto) 4.1 % (21.0-51.0) L 12/30/17 05:32 [place] % (Auto) 4.0 % (0.0-13.0) 12/30/17 05:32 Eos % (Auto) 0.0 % (0.9-2.9) L 12/30/17 05:32 Baso % (Auto) 0.1 % (0.2-1.0) L 12/30/17 05:32 Neut # (Auto) 14.2 x10^3/uL (2.2-4.8) H 12/30/17 05:32 Lymph # (Auto) 0.6 X10^3/uL (1.3-2.9) L 12/30/17 05:32 [place] # (Auto) 0.6 x10^3/uL (0.3-0.8) 12/30/17 05:32 Eos # (Auto) 0.0 x10^3/uL (0.0-0.2) 12/30/17 05:32 Baso # (Auto) 0.0 X10^3/uL (0.0-0.1) 12/30/17 05:32 Absolute Nucleated RBC 0.0 /100WBC 12/30/17 05:32 Total Counted 100 12/30/17 05:32 Neutrophils % (Manual) 82 % (39-76) H 12/30/17 05:32 Band Neutrophils % 5 % (0-10) 12/30/17 05:32 Lymphocytes % (Manual) 9 % (13-43) L 12/30/17 05:32 Monocytes % (Manual) 5 % (4-9) 12/30/17 05:32 Metamyelocytes % 9 12/27/17 05:00 Plt Morphology Comment Normal (NORMAL) 12/30/17 05:32 RBC Morphology Normal (NORMAL) 12/30/17 05:32 INR Target Range - 12/26/17 12:18 INR 1.16 (0.8-1.3) 12/26/17 12:18 APTT 27.8 SECONDS (22.9-36.5) 12/26/17 12:18 PTT Comment - 12/26/17 12:18 D-Dimer 232 ng/mL (0-400) 12/26/17 12:18 Sample Site Rbra 12/29/17 22:45 ABG pH 7.380 (7.35-7.45) 12/29/17 22:45 ABG pCO2 61.0 mmHg (35.0-45.0) H* 12/29/17 22:45 ABG pO2 54.0 mmHg (80.0-100.0) L 12/29/17 22:45 ABG HCO3 36.1 mmol/L (22-26) H* 12/29/17 22:45 ABG O2 Saturation 87.0 % (90-100) L 12/29/17 22:45 ABG Base Excess 8.9 mmol/L (-2.0-2.0) H 12/29/17 22:45 Renato Test Na 12/29/17 22:45 A-a Gradient 376.0 mmHg 12/29/17 22:45 FiO2 71.0 12/29/17 22:45 Blood Gas Comments Jeny abg well-mtf 12/29/17 22:45 Sodium 143 mmol/L (136-145) 12/30/17 05:32 Corrected Sodium 145 mmol/L (136-145) 12/30/17 05:32 Potassium 4.0 mmol/L (3.5-5.1) 12/30/17 05:32 Chloride 109 mmol/L (98-107) H 12/30/17 05:32 Carbon Dioxide 28.8 mmol/L (21-32) 12/30/17 05:32 BUN 32 mg/dL (7-18) H 12/30/17 05:32 Creatinine 1.15 mg/dL (0.70-1.30) 12/30/17 05:32 Est GFR (MDRD) Af Amer > 60 (>60) 12/30/17 05:32 Est GFR (MDRD) Non-Af > 60 (>60) 12/30/17 05:32 Glucose 191 mg/dL (65-99) H 12/30/17 05:32 Lactic Acid 1.1 mmol/L (0.4-2.0) 12/28/17 05:01 Calcium 7.8 mg/dL (8.5-10.1) L 12/30/17 05:32 Corrected Calcium 9.6 mg/dL (8.5-10.1) 12/30/17 05:32 Magnesium 2.6 mg/dL (1.7-2.9) 12/27/17 05:00 Total Bilirubin 0.50 mg/dL (0.2-1.0) 12/30/17 05:32 AST 11 Units/L (15-37) L 12/30/17 05:32 ALT 28 Units/L (12-78) 12/30/17 05:32 Alkaline Phosphatase 58 Units/L (46-116) 12/30/17 05:32 Creatine Kinase 86 Units/L (39-308) 12/27/17 00:24 CK-MB (CK-2) 1.1 ng/mL (0-4.0) 12/27/17 00:24 CK/CKMB % Calc 1.3 % (<4) 12/27/17 00:24 Troponin I < 0.02 ng/mL (0-1.5) 12/27/17 00:24 B-Natriuretic Peptide 47.2 pg/mL (0-79) 12/26/17 12:18 Total Protein 5.9 g/dL (6.4-8.2) L 12/30/17 05:32 Albumin 1.8 g/dL (3.4-5.0) L 12/30/17 05:32 Globulin 4.1 g/dL (2.5-4.5) 12/30/17 05:32 Albumin/Globulin Ratio 0.4 Ratio (1.1-2.1) L 12/30/17 05:32 Specimen Type Catherized urine 12/28/17 16:00 Urine Color Yellow (YELLOW) 12/28/17 16:00 Urine Appearance Clear (CLEAR) 12/28/17 16:00 Urine pH 5.0 (5.0 - 8.0) 12/28/17 16:00 Ur Specific [place] 1.020 (1.000-1.030) 12/28/17 16:00 Urine Protein 2+ (NEGATIVE) 12/28/17 16:00 Urine Glucose (UA) 2+ (NEGATIVE) 12/28/17 16:00 Urine Ketones Negative (NEGATIVE) 12/28/17 16:00 Urine Occult Blood 1+ (NEGATIVE) 12/28/17 16:00 Urine Nitrite Negative (NEGATIVE) 12/28/17 16:00 Urine Bilirubin Negative (NEGATIVE) 12/28/17 16:00 Urine Urobilinogen Normal (NORMAL) 12/28/17 16:00 Ur Leukocyte Esterase Negative (NEGATIVE) 12/28/17 16:00 Urine RBC 0-2 /HPF (NONE SEEN) 12/28/17 16:00 Urine WBC 0-2 /HPF (NONE SEEN) 12/28/17 16:00 Ur Squamous Epith Cells Rare /HPF (NEGATIVE) 12/28/17 16:00 Amorphous Sediment Trace /HPF (NEGATIVE) 12/28/17 16:00 Urine Bacteria Negative /HPF (NEGATIVE) 12/28/17 16:00 Urine Mucus Few /HPF (NEGATIVE) 12/28/17 16:00 Ur Culture Indicated? No/not indicated 12/28/17 16:00 - Plan (1) Right upper lobe pneumonia Status: Acute Qualifiers: Pneumonia type: due to unspecified organism Qualified Code(s): J18.1 - Lobar pneumonia, unspecified organism Plan: IV ANTIBIOTICS, RESPIRATORY TREATMENTS, SUPPLEMENTAL OXYGEN, SOLU-MEDROL 125MG IV Q6H, CONTINUE TO MONITOR (2) COPD exacerbation Status: Acute Plan: WILL CONTINUE NEB TREATMENT, HEATED HIGH FLOW OXYGEN, CONTINUE TO MONITOR.. (3) Sepsis Status: Acute Qualifiers: Sepsis type: sepsis due to unspecified organism Qualified Code(s): A41.9 - Sepsis, unspecified organism Plan: CONTINUE IV ANTIBIOITCS, CONTINUE TO MONITOR (4) Chronic kidney disease (CKD) Status: Acute Qualifiers: Chronic kidney disease stage: unspecified stage Qualified Code(s): N18.9 - Chronic kidney disease, unspecified (5) Hypotension Status: Acute Qualifiers: Hypotension type: unspecified hypotension type Qualified Code(s): I95.9 - Hypotension, unspecified Plan: CONTINUE IV FLUIDS AND DOPAMINE. BP IMPROVING. (6) Hypoxemia Status: Acute Plan: HEATED HIGH FLOW OXYGEN, CONTINUE TO MONITOR. (7) SIRS (systemic inflammatory response syndrome) Status: Acute
[2017-12-30] MEDS ORDERED: THEO-DUR TAB 200 MG PO SCH (10:00)
[2017-12-30] MEDS: THEO-DUR TAB 200 MG PO SCH ×2 (10:05→21:59)
[2017-12-30] MEDS: LEVAQUIN PREMIX IV 750 MG 750 MG/150 ML BAG IV SCH (10:13)
--- NOTE | 2017-12-30 20:10 | PCM.PROG ---
Progress Note - Progress Note for Day of Date of Exam: 12/30/17 - Subjective Subjective: IS A 62 YEAR OLD PATIENT OF [facility] WHO WAS ADMITTED FOR RIGHT SIDED PNEUMONIA, HYPOXEMIA, SIRS, HYPOTENSION, AND CHRONIC KIDNEY DISEASE. HE WAS ADMITTED TO THE INTENSIVE CARE UNIT ON THE BIPAP AND A DOPAMINE DRIP. HE HAS BEEN TRANSITIONED TO HIGH FLOW HEADED OXYGEN VIA NASAL CANNULA. THE DOPAMINE DRIP WAS DISCONTINUED. TODAY, HE IS SITTING UP IN THE RECLINER ON MORNING ROUNDS. HE COMPLAINS OF SHORTNESS OF BREATH AND COUGH. ON EXAMINATION, HEART IS REGULAR IN RATE AND RHYTHM. BILATERAL LUNGS ARE NOTED WITH SCATTERED WHEEZING AND RHONCHI THROUGHOUT. ABDOMEN IS ROUND, SOFT, AND NON- TENDER WITH NORMAL BOWEL SOUNDS NOTED IN ALL QUADRANTS. HIS VITALS THIS MORNING ARE 99.0-78-18-91%NC-122/78. LABS WERE OBTAINED. ABNORMAL LAB VALUES INCLUDE THE FOLLOWING: WBC 15.5, RBC 3.91, HGB 12.5, HCT 37.8, CHLORIDE 109, BUN 32, GLUCOSE 191, CALCIUM 7.8, AST 11, TOTAL PROTEIN 5.9, ALBUMIN 1.8. A CHEST CTA WAS OBTAINED THIS MORNING AND REVEALED: No evidence for acute pulmonary throm boembolic disease. No change dense consolidating alveolar pneumonia involving the right upper and right lower lobes. Bilateral pleural effusions right greater than left with underlying compressive atelectasis in the lower lobes bilaterally. TODAY, WE WILL START THEOPHYLLINE 200MG PO BID. OTHERWISE, WE WILL CONTINUE WITH IV ANTIBIOTICS, RESPIRATORY TREATMENTS, AND CURRENT PLAN OF CARE. WE WILL FOLLOW UP WITH AM LABS AND CHEST XRAY AND CONTINUE TO MONITOR. - Past Medical Family Social History Past Med/Fam/Surg Hx: No changes since H&P Allergies: Allergies No Known Drug Allergies Allergy (Verified 12/26/17 17:28) - Review of Systems ROS: No change since H&P - Vital Signs and I&O's Vital Signs: Temperature 98.6 F Pulse Rate [Right Radial] 106 Pulse Rate 85 Respiratory Rate 22 Blood Pressure [Left Arm] 101/64 Blood Pressure 98/52 O2 Sat by Pulse Oximetry 83 Intake and Output: Intake & Output 12/28/17 12/29/17 12/30/17 12/31/17 11:59 11:59 11:59 11:59 Intake Total 5678 / 5678 4464 / 4464 4514 / 4514 1762 / 1762 Output Total 1600 / 1600 2900 / 2900 5750 / 5750 1150 / 1150 Balance 4078 / 4078 1564 / 1564 -1236 / -1236 612 / 612 - Physical Exam Oriented: Person Eyes: Normal Ear: Normal Nose: Normal Throat: Normal Respiratory: Generalized, Diminished, Wheezes, Rhonchi Cardiovascular: Normal : Normal Auscultation: Bowel Sounds: Normal Tenderness: Normal Skin: Normal Musculoskeletal: Normal Psychiatric: Normal Mood Description: Anxious, Appropriate Affect: Normal Speech Pattern: Clear - Laboratory and Diagnostics Result Diagrams: 12/30/17 05:32 12/30/17 05:32 Labs: 12/26/17 13:07 Sputum - Expectorated Sputum Sputum Culture - Final Streptococcus Pneumoniae 12/26/17 13:07 Sputum - Expectorated Sputum - Final 12/26/17 12:22 Blood Blood Culture - Preliminary 12/26/17 12:18 Blood Blood Culture - Preliminary Laboratory WBC 15.5 X10^3/uL (3.6-10.0) H 12/30/17 05:32 RBC 3.91 X10^6/uL (4.7-6.0) L 12/30/17 05:32 Hgb 12.5 g/dL (13.5-18.0) L 12/30/17 05:32 Hct 37.8 % (42.0-54.0) L 12/30/17 05:32 MCV 96.6 fL (80.0-100.0) 12/30/17 05:32 MCH 32.1 pg (27.0-34.0) 12/30/17 05:32 MCHC 33.2 g/dL (33.0-35.0) 12/30/17 05:32 RDW 13.9 % (11.6-16.5) 12/30/17 05:32 Plt Count 200 X10^3/uL (150.0-450.0) 12/30/17 05:32 Plt Count Comment Adequate (ADEQUATE) 12/30/17 05:32 MPV 9.2 fL (7.4-11.0) 12/30/17 05:32 Neut % (Auto) 91.8 % (42.0-75.0) H 12/30/17 05:32 Lymph % (Auto) 4.1 % (21.0-51.0) L 12/30/17 05:32 [place] % (Auto) 4.0 % (0.0-13.0) 12/30/17 05:32 Eos % (Auto) 0.0 % (0.9-2.9) L 12/30/17 05:32 Baso % (Auto) 0.1 % (0.2-1.0) L 12/30/17 05:32 Neut # (Auto) 14.2 x10^3/uL (2.2-4.8) H 12/30/17 05:32 Lymph # (Auto) 0.6 X10^3/uL (1.3-2.9) L 12/30/17 05:32 [place] # (Auto) 0.6 x10^3/uL (0.3-0.8) 12/30/17 05:32 Eos # (Auto) 0.0 x10^3/uL (0.0-0.2) 12/30/17 05:32 Baso # (Auto) 0.0 X10^3/uL (0.0-0.1) 12/30/17 05:32 Absolute Nucleated RBC 0.0 /100WBC 12/30/17 05:32 Total Counted 100 12/30/17 05:32 Neutrophils % (Manual) 82 % (39-76) H 12/30/17 05:32 Band Neutrophils % 5 % (0-10) 12/30/17 05:32 Lymphocytes % (Manual) 9 % (13-43) L 12/30/17 05:32 Monocytes % (Manual) 5 % (4-9) 12/30/17 05:32 Metamyelocytes % 9 12/27/17 05:00 Plt Morphology Comment Normal (NORMAL) 12/30/17 05:32 RBC Morphology Normal (NORMAL) 12/30/17 05:32 INR Target Range - 12/26/17 12:18 INR 1.16 (0.8-1.3) 12/26/17 12:18 APTT 27.8 SECONDS (22.9-36.5) 12/26/17 12:18 PTT Comment - 12/26/17 12:18 D-Dimer 232 ng/mL (0-400) 12/26/17 12:18 Sample Site Rbra 12/29/17 22:45 ABG pH 7.380 (7.35-7.45) 12/29/17 22:45 ABG pCO2 61.0 mmHg (35.0-45.0) H* 12/29/17 22:45 ABG pO2 54.0 mmHg (80.0-100.0) L 12/29/17 22:45 ABG HCO3 36.1 mmol/L (22-26) H* 12/29/17 22:45 ABG O2 Saturation 87.0 % (90-100) L 12/29/17 22:45 ABG Base Excess 8.9 mmol/L (-2.0-2.0) H 12/29/17 22:45 Renato Test Na 12/29/17 22:45 A-a Gradient 376.0 mmHg 12/29/17 22:45 FiO2 71.0 12/29/17 22:45 Blood Gas Comments Jeny abg well-mtf 12/29/17 22:45 Sodium 143 mmol/L (136-145) 12/30/17 05:32 Corrected Sodium 145 mmol/L (136-145) 12/30/17 05:32 Potassium 4.0 mmol/L (3.5-5.1) 12/30/17 05:32 Chloride 109 mmol/L (98-107) H 12/30/17 05:32 Carbon Dioxide 28.8 mmol/L (21-32) 12/30/17 05:32 BUN 32 mg/dL (7-18) H 12/30/17 05:32 Creatinine 1.15 mg/dL (0.70-1.30) 12/30/17 05:32 Est GFR (MDRD) Af Amer > 60 (>60) 12/30/17 05:32 Est GFR (MDRD) Non-Af > 60 (>60) 12/30/17 05:32 Glucose 191 mg/dL (65-99) H 12/30/17 05:32 Lactic Acid 1.1 mmol/L (0.4-2.0) 12/28/17 05:01 Calcium 7.8 mg/dL (8.5-10.1) L 12/30/17 05:32 Corrected Calcium 9.6 mg/dL (8.5-10.1) 12/30/17 05:32 Magnesium 2.6 mg/dL (1.7-2.9) 12/27/17 05:00 Total Bilirubin 0.50 mg/dL (0.2-1.0) 12/30/17 05:32 AST 11 Units/L (15-37) L 12/30/17 05:32 ALT 28 Units/L (12-78) 12/30/17 05:32 Alkaline Phosphatase 58 Units/L (46-116) 12/30/17 05:32 Creatine Kinase 86 Units/L (39-308) 12/27/17 00:24 CK-MB (CK-2) 1.1 ng/mL (0-4.0) 12/27/17 00:24 CK/CKMB % Calc 1.3 % (<4) 12/27/17 00:24 Troponin I < 0.02 ng/mL (0-1.5) 12/27/17 00:24 B-Natriuretic Peptide 47.2 pg/mL (0-79) 12/26/17 12:18 Total Protein 5.9 g/dL (6.4-8.2) L 12/30/17 05:32 Albumin 1.8 g/dL (3.4-5.0) L 12/30/17 05:32 Globulin 4.1 g/dL (2.5-4.5) 12/30/17 05:32 Albumin/Globulin Ratio 0.4 Ratio (1.1-2.1) L 12/30/17 05:32 Specimen Type Catherized urine 12/28/17 16:00 Urine Color Yellow (YELLOW) 12/28/17 16:00 Urine Appearance Clear (CLEAR) 12/28/17 16:00 Urine pH 5.0 (5.0 - 8.0) 12/28/17 16:00 Ur Specific [place] 1.020 (1.000-1.030) 12/28/17 16:00 Urine Protein 2+ (NEGATIVE) 12/28/17 16:00 Urine Glucose (UA) 2+ (NEGATIVE) 12/28/17 16:00 Urine Ketones Negative (NEGATIVE) 12/28/17 16:00 Urine Occult Blood 1+ (NEGATIVE) 12/28/17 16:00 Urine Nitrite Negative (NEGATIVE) 12/28/17 16:00 Urine Bilirubin Negative (NEGATIVE) 12/28/17 16:00 Urine Urobilinogen Normal (NORMAL) 12/28/17 16:00 Ur Leukocyte Esterase Negative (NEGATIVE) 12/28/17 16:00 Urine RBC 0-2 /HPF (NONE SEEN) 12/28/17 16:00 Urine WBC 0-2 /HPF (NONE SEEN) 12/28/17 16:00 Ur Squamous Epith Cells Rare /HPF (NEGATIVE) 12/28/17 16:00 Amorphous Sediment Trace /HPF (NEGATIVE) 12/28/17 16:00 Urine Bacteria Negative /HPF (NEGATIVE) 12/28/17 16:00 Urine Mucus Few /HPF (NEGATIVE) 12/28/17 16:00 Ur Culture Indicated? No/not indicated 12/28/17 16:00 - Plan (1) Right upper lobe pneumonia Status: Acute Qualifiers: Pneumonia type: due to unspecified organism Qualified Code(s): J18.1 - Lobar pneumonia, unspecified organism Plan: IV ANTIBIOTICS, RESPIRATORY TREATMENTS, SUPPLEMENTAL OXYGEN, SOLU-MEDROL 125MG IV Q6H, CONTINUE TO MONITOR (2) COPD exacerbation Status: Acute Plan: WILL CONTINUE NEB TREATMENT, HEATED HIGH FLOW OXYGEN, CONTINUE TO MONITOR.. (3) Sepsis Status: Acute Qualifiers: Sepsis type: sepsis due to unspecified organism Qualified Code(s): A41.9 - Sepsis, unspecified organism Plan: CONTINUE IV ANTIBIOITCS, CONTINUE TO MONITOR (4) Chronic kidney disease (CKD) Status: Acute Qualifiers: Chronic kidney disease stage: unspecified stage Qualified Code(s): N18.9 - Chronic kidney disease, unspecified (5) Hypotension Status: Acute Qualifiers: Hypotension type: unspecified hypotension type Qualified Code(s): I95.9 - Hypotension, unspecified Plan: CONTINUE IV FLUIDS AND DOPAMINE. BP IMPROVING. (6) Hypoxemia Status: Acute Plan: HEATED HIGH FLOW OXYGEN, CONTINUE TO MONITOR. (7) SIRS (systemic inflammatory response syndrome) Status: Acute
[2017-12-30] MEDS: FLOMAX PO SCH (21:59)
[2017-12-31] MEDS: DUONEB 0.5 MG/3 MG NEB SCH ×6 (01:29→20:41)
[2017-12-31] MEDS: MUCOMYST 20% 200 MG/ML NEB SCH ×6 (01:29→20:41)
[2017-12-31] MEDS: SOLU-Medrol 125 MG VIAL IVP SCH ×4 (04:07→20:59)
[2017-12-31] MEDS: NS 1000 ML 1,000 ML IV SCH ×2 (04:07→08:49)
[2017-12-31 06:06] LABS: BASOPHILS % (AUTO) 0.1 % (0.2-1.0); HEMATOCRIT 40.2 % (42.0-54.0); HEMOGLOBIN 13.6 g/dL (13.5-18.0); LYMPHOCYTES # (AUTO) 0.5 X10^3/uL (1.3-2.9); LYMPHOCYTES % (AUTO) 5.5 % (21.0-51.0); MEAN CORPUSCULAR HEMOGLOBIN 32.2 pg (27.0-34.0); MEAN CORPUSCULAR HGB CONC 33.8 g/dL (33.0-35.0); MEAN CORPUSCULAR VOLUME 95.4 fL (80.0-100.0); MEAN PLATELET VOLUME 9.1 fL (7.4-11.0); MONOCYTES # (AUTO) 0.6 x10^3/uL (0.3-0.8); MONOCYTES % (AUTO) 6.6 % (0.0-13.0); NEUTROPHILS # (AUTO) 7.9 x10^3/uL (2.2-4.8); NEUTROPHILS % (AUTO) 87.8 % (42.0-75.0); PLATELET COUNT 210 X10^3/uL (150.0-450.0); RED BLOOD COUNT 4.21 X10^6/uL (4.7-6.0); RED CELL DISTRIBUTION WIDTH 14.1 % (11.6-16.5)
[2017-12-31 06:12] LABS: ALANINE AMINOTRANSFERASE 27 Units/L (12-78); ALKALINE PHOSPHATASE 54 Units/L (46-116); ASPARTATE AMINO TRANSFERASE 9 Units/L (15-37); BLOOD UREA NITROGEN 34 mg/dL (7-18); CALCIUM 7.8 mg/dL (8.5-10.1); CARBON DIOXIDE 29.2 mmol/L (21-32); CHLORIDE 108 mmol/L (98-107); COR CA(FOR HYPOALB) 9.4 mg/dL (8.5-10.1); COR NA(FOR HYPERGLY) 150 mmol/L (136-145); SODIUM 145 mmol/L (136-145); TOTAL PROTEIN 6.2 g/dL (6.4-8.2); eGFR NON BLACK RACES 59 (>60)
[2017-12-31] MEDS ORDERED: KLOR-CON PO PRN (06:21)
[2017-12-31] MEDS ORDERED: MICRO K EXTEN CAP 10 MEQ PO PRN (06:21)
[2017-12-31] MEDS ORDERED: K-RIDER 10 MEQ/NS 100 ML 10 MEQ/100 ML BAG IV PRN (06:21)
[2017-12-31] MEDS ORDERED: POTASSIUM CHLORIDE LIQ 20 MEQ UDC PO PRN (06:21)
[2017-12-31] MEDS ORDERED: POTASSIUM CHL 40 MEQ/NS 0.45% 500 ML IV PRN (06:21)
[2017-12-31] MEDS ORDERED: POTASSIUM CHL 60 MEQ/NS 0.45% 500 ML IV PRN (06:21)
[2017-12-31 06:24] LABS: BAND NEUTROPHILS % 4 % (0-10); PLATELET MORPHOLOGY COMMENT NORMAL (NORMAL)
[2017-12-31] MEDS: ZOSYN VIAL 4.5 GRAMS 4.5 G in NS 100 ML IV + SPIKE MINIBAG* 100 ML IV SCH ×3 (06:41→20:59)
--- NOTE | 2017-12-31 06:47 | RAD ---
HISTORY: Shortness of breath Study: Chest AP portable Comparison: 12/29/2017, CTA chest 12/30/2017 Findings: The heart is enlarged. No definite congestive heart failure is noted. There has been some improvement in the right upper and right lower lobe infiltrates being followed. The left lung is free of acute infiltrates. Bilateral small pleural effusions are likely present. The bony thorax is unremarkable. IMPRESSION: Some improvement in the right upper and right lower lobe pneumonia is being followed Reported By:
[2017-12-31] MEDS: PULMICORT NEB TX 0.5 MG NEB SCH ×2 (08:43→20:41)
[2017-12-31] MEDS: THEO-DUR TAB 200 MG PO SCH ×2 (08:47→20:56)
[2017-12-31] MEDS: K-DUR TAB 20 MEQ PO PRN ×2 (08:48→11:34)
[2017-12-31] MEDS: LOVENOX INJ 40 MG SYR SC SCH ×2 (08:49→20:57)
[2017-12-31] MEDS: LEVAQUIN PREMIX IV 750 MG 750 MG/150 ML BAG IV SCH (10:51)
[2017-12-31] MEDS: NS + KCL 20 MEQ/L 1,000 ML IV SCH ×2 (15:36→22:34)
[2017-12-31] MEDS: FLOMAX PO SCH (20:56)
[2018-01-01] MEDS: DUONEB 0.5 MG/3 MG NEB SCH ×3 (00:13→08:55)
[2018-01-01] MEDS: MUCOMYST 20% 200 MG/ML NEB SCH ×3 (00:13→08:55)
[2018-01-01] MEDS: SOLU-Medrol 125 MG VIAL IVP SCH ×2 (05:11→08:18)
[2018-01-01] MEDS: ZOSYN VIAL 4.5 GRAMS 4.5 G in NS 100 ML IV + SPIKE MINIBAG* 100 ML IV SCH (05:11)
[2018-01-01 05:17] LABS: BASOPHILS % (AUTO) 0.1 % (0.2-1.0); HEMATOCRIT 39.2 % (42.0-54.0); HEMOGLOBIN 13.3 g/dL (13.5-18.0); LYMPHOCYTES # (AUTO) 0.7 X10^3/uL (1.3-2.9); LYMPHOCYTES % (AUTO) 7.6 % (21.0-51.0); MEAN CORPUSCULAR HEMOGLOBIN 32.2 pg (27.0-34.0); MEAN CORPUSCULAR HGB CONC 33.9 g/dL (33.0-35.0); MEAN CORPUSCULAR VOLUME 95.1 fL (80.0-100.0); MEAN PLATELET VOLUME 8.6 fL (7.4-11.0); MONOCYTES # (AUTO) 0.7 x10^3/uL (0.3-0.8); MONOCYTES % (AUTO) 7.1 % (0.0-13.0); NEUTROPHILS % (AUTO) 85.2 % (42.0-75.0); PLATELET COUNT 226 X10^3/uL (150.0-450.0); RED BLOOD COUNT 4.12 X10^6/uL (4.7-6.0); RED CELL DISTRIBUTION WIDTH 13.9 % (11.6-16.5); WHITE BLOOD COUNT 9.3 X10^3/uL (3.6-10.0)
[2018-01-01 05:28] LABS: ALANINE AMINOTRANSFERASE 24 Units/L (12-78); ALBUMIN 2.2 g/dL (3.4-5.0); ALKALINE PHOSPHATASE 49 Units/L (46-116); ASPARTATE AMINO TRANSFERASE 8 Units/L (15-37); BLOOD UREA NITROGEN 31 mg/dL (7-18); CALCIUM 7.7 mg/dL (8.5-10.1); CARBON DIOXIDE 29.6 mmol/L (21-32); CHLORIDE 110 mmol/L (98-107); COR CA(FOR HYPOALB) 9.1 mg/dL (8.5-10.1); COR NA(FOR HYPERGLY) 151 mmol/L (136-145); CREATININE 1.17 mg/dL (0.70-1.30); SODIUM 147 mmol/L (136-145); eGFR NON BLACK RACES > 60 (>60)
[2018-01-01 05:35] LABS: BAND NEUTROPHILS % 4 % (0-10)
[2018-01-01 05:36] LABS: PLATELET MORPHOLOGY COMMENT NORMAL (NORMAL); STOMATOCYTES PRESENT
[2018-01-01] MEDS: NS + KCL 20 MEQ/L 1,000 ML IV SCH (08:16)
[2018-01-01] MEDS: LEVAQUIN PREMIX IV 750 MG 750 MG/150 ML BAG IV SCH (08:16)
[2018-01-01] MEDS: LOVENOX INJ 40 MG SYR SC SCH (08:17)
[2018-01-01] MEDS: THEO-DUR TAB 200 MG PO SCH (08:18)
[2018-01-01] MEDS: PULMICORT NEB TX 0.5 MG NEB SCH (08:55)
--- NOTE | 2018-01-01 10:14 | PCM.PROG ---
Progress Note - Progress Note for Day of Date of Exam: 12/31/17 - Subjective Subjective: IS A 62 YEAR OLD PATIENT OF [facility] ARGUETA WHO WAS ADMITTED FOR RIGHT SIDED PNEUMONIA, ACUTE ON CHRONIC RESPIRATORY FAILURE WITH HYPERCAPNIA AND HYPOXIA, SIRS, HYPOTENSION, AND CHRONIC KIDNEY DISEASE. HE REMAINS IN THE INTENSIVE CARE UNIT ON THE VENTIMASK. TODAY, HE IS SITTING UP IN THE RECLINER ON MORNING ROUNDS. HE CONTINUES WITH COMPLAINTS OF SHORTNESS OF BREATH AND COUGH. HE WAS NON-COMPLAINT WITH HEATED HIGH FLOW OXYGEN YESTERDAY AND WAS PLACED ON THE VENTI MASK. HIS SATURATIONS REMAINED IN THE HIGH 80S TO LOW 90S. ON EXAMINATION, HEART IS REGULAR IN RATE AND RHYTHM. BILATERAL LUNGS ARE NOTED WITH SCATTERED WHEEZING AND RHONCHI THROUGHOUT. ABDOMEN IS ROUND, SOFT, AND NON-TENDER WITH NORMAL BOWEL SOUNDS NOTED IN ALL QUADRANTS. HIS VITALS THIS MORNING ARE 98.1-73-23-92%-129/61. LABS WERE OBTAINED. ABNORMAL LAB VALUES INCLUDE THE FOLLOWING: RBC 4.21, HCT 40.2, SODIUM 147, CHLORIDE 110, BUN 31, GLUCOSE 271, CALCIUM 7.7, AST 8, TOTAL PROTEIN 6.0, ALBUMIN 2.2. A CHEST CTA WAS OBTAINED THIS MORNING AND REVEALED: Some improvement in the right upper and right lower lobe pneumonia is being followed. SPUTUM CULTURE REVEALED GROWTH OF STREPTOCOCCUS PNEUMONIAE. HE IS CURRENTLY RECEIVING IV ANTIBIOTICS, RESPIRATORY TREATMENTS, SUPPLEMENTAL OXYGEN, IV STEROIDS, AND WAS STARTED ON THEOPHYLLINE YESTERDAY. WE WILL CONTINUE WITH CURRENT PLAN OF CARE TODAY. OTHERWISE, WE WILL FOLLOW UP WITH AM LABS AND CHEST XRAY AND CONTINUE TO MONITOR. - Past Medical Family Social History Past Med/Fam/Surg Hx: No changes since H&P Allergies: Allergies No Known Drug Allergies Allergy (Verified 12/26/17 17:28) - Review of Systems ROS: No change since H&P - Vital Signs and I&O's Vital Signs: Temperature 98.6 F Pulse Rate [Right Radial] 106 Pulse Rate 98 Respiratory Rate 19 Blood Pressure [Left Arm] 101/64 Blood Pressure 130/78 O2 Sat by Pulse Oximetry 88 Intake and Output: Intake & Output 12/29/17 12/30/17 12/31/17 01/01/18 11:59 11:59 11:59 11:59 Intake Total 4464 / 4464 4514 / 4514 4550 / 4550 5383 / 5383 Output Total 2900 / 2900 5750 / 5750 3550 / 3550 2074 / 2074 Balance 1564 / 1564 -1236 / -1236 1000 / 1000 3308 / 3308 - Physical Exam Oriented: Person Eyes: Normal Ear: Normal Nose: Normal Throat: Normal Respiratory: Generalized, Diminished, Wheezes, Rhonchi Cardiovascular: Normal : Normal Auscultation: Bowel Sounds: Normal Palpation: Normal Tenderness: Normal Skin: Normal Musculoskeletal: Normal Psychiatric: Normal Mood Description: Anxious, Appropriate Affect: Normal Speech Pattern: Clear - Laboratory and Diagnostics Result Diagrams: 01/01/18 04:39 01/01/18 04:39 Labs: 12/26/17 12:18 Blood Blood Culture - Final 12/26/17 12:22 Blood Blood Culture - Final 12/26/17 13:07 Sputum - Expectorated Sputum Sputum Culture - Final Streptococcus Pneumoniae 12/26/17 13:07 Sputum - Expectorated Sputum - Final Laboratory WBC 9.3 X10^3/uL (3.6-10.0) 01/01/18 04:39 RBC 4.12 X10^6/uL (4.7-6.0) L 01/01/18 04:39 Hgb 13.3 g/dL (13.5-18.0) L 01/01/18 04:39 Hct 39.2 % (42.0-54.0) L 01/01/18 04:39 MCV 95.1 fL (80.0-100.0) 01/01/18 04:39 MCH 32.2 pg (27.0-34.0) 01/01/18 04:39 MCHC 33.9 g/dL (33.0-35.0) 01/01/18 04:39 RDW 13.9 % (11.6-16.5) 01/01/18 04:39 Plt Count 226 X10^3/uL (150.0-450.0) 01/01/18 04:39 Plt Count Comment Adequate (ADEQUATE) 01/01/18 04:39 MPV 8.6 fL (7.4-11.0) 01/01/18 04:39 Neut % (Auto) 85.2 % (42.0-75.0) H 01/01/18 04:39 Lymph % (Auto) 7.6 % (21.0-51.0) L 01/01/18 04:39 [place] % (Auto) 7.1 % (0.0-13.0) 01/01/18 04:39 Eos % (Auto) 0.0 % (0.9-2.9) L 01/01/18 04:39 Baso % (Auto) 0.1 % (0.2-1.0) L 01/01/18 04:39 Neut # (Auto) 8.0 x10^3/uL (2.2-4.8) H 01/01/18 04:39 Lymph # (Auto) 0.7 X10^3/uL (1.3-2.9) L 01/01/18 04:39 [place] # (Auto) 0.7 x10^3/uL (0.3-0.8) 01/01/18 04:39 Eos # (Auto) 0.0 x10^3/uL (0.0-0.2) 01/01/18 04:39 Baso # (Auto) 0.0 X10^3/uL (0.0-0.1) 01/01/18 04:39 Absolute Nucleated RBC 0.1 /100WBC 01/01/18 04:39 Total Counted 100 01/01/18 04:39 Neutrophils % (Manual) 82 % (39-76) H 01/01/18 04:39 Band Neutrophils % 4 % (0-10) 01/01/18 04:39 Lymphocytes % (Manual) 9 % (13-43) L 01/01/18 04:39 Monocytes % (Manual) 5 % (4-9) 01/01/18 04:39 Metamyelocytes % 9 12/27/17 05:00 Plt Morphology Comment Normal (NORMAL) 01/01/18 04:39 RBC Morphology Abnormal (NORMAL) 01/01/18 04:39 Stomatocytes Present 01/01/18 04:39 INR Target Range - 12/26/17 12:18 INR 1.16 (0.8-1.3) 12/26/17 12:18 APTT 27.8 SECONDS (22.9-36.5) 12/26/17 12:18 PTT Comment - 12/26/17 12:18 D-Dimer 232 ng/mL (0-400) 12/26/17 12:18 Sample Site Rbra 12/29/17 22:45 ABG pH 7.380 (7.35-7.45) 12/29/17 22:45 ABG pCO2 61.0 mmHg (35.0-45.0) H* 12/29/17 22:45 ABG pO2 54.0 mmHg (80.0-100.0) L 12/29/17 22:45 ABG HCO3 36.1 mmol/L (22-26) H* 12/29/17 22:45 ABG O2 Saturation 87.0 % (90-100) L 12/29/17 22:45 ABG Base Excess 8.9 mmol/L (-2.0-2.0) H 12/29/17 22:45 Renato Test Na 12/29/17 22:45 A-a Gradient 376.0 mmHg 12/29/17 22:45 FiO2 71.0 12/29/17 22:45 Blood Gas Comments Jeny abg well-mtf 12/29/17 22:45 Sodium 147 mmol/L (136-145) H 01/01/18 04:39 Corrected Sodium 151 mmol/L (136-145) H 01/01/18 04:39 Potassium 3.9 mmol/L (3.5-5.1) 01/01/18 04:39 Chloride 110 mmol/L (98-107) H 01/01/18 04:39 Carbon Dioxide 29.6 mmol/L (21-32) 01/01/18 04:39 BUN 31 mg/dL (7-18) H 01/01/18 04:39 Creatinine 1.17 mg/dL (0.70-1.30) 01/01/18 04:39 Est GFR (MDRD) Af Amer > 60 (>60) 01/01/18 04:39 Est GFR (MDRD) Non-Af > 60 (>60) 01/01/18 04:39 Glucose 271 mg/dL (65-99) H 01/01/18 04:39 Lactic Acid 1.1 mmol/L (0.4-2.0) 12/28/17 05:01 Calcium 7.7 mg/dL (8.5-10.1) L 01/01/18 04:39 Corrected Calcium 9.1 mg/dL (8.5-10.1) 01/01/18 04:39 Magnesium 2.0 mg/dL (1.7-2.9) 12/31/17 05:23 Total Bilirubin 0.40 mg/dL (0.2-1.0) 01/01/18 04:39 AST 8 Units/L (15-37) L 01/01/18 04:39 ALT 24 Units/L (12-78) 01/01/18 04:39 Alkaline Phosphatase 49 Units/L (46-116) 01/01/18 04:39 Creatine Kinase 86 Units/L (39-308) 12/27/17 00:24 CK-MB (CK-2) 1.1 ng/mL (0-4.0) 12/27/17 00:24 CK/CKMB % Calc 1.3 % (<4) 12/27/17 00:24 Troponin I < 0.02 ng/mL (0-1.5) 12/27/17 00:24 B-Natriuretic Peptide 47.2 pg/mL (0-79) 12/26/17 12:18 Total Protein 6.0 g/dL (6.4-8.2) L 01/01/18 04:39 Albumin 2.2 g/dL (3.4-5.0) L 01/01/18 04:39 Globulin 3.8 g/dL (2.5-4.5) 01/01/18 04:39 Albumin/Globulin Ratio 0.6 Ratio (1.1-2.1) L 01/01/18 04:39 Specimen Type Catherized urine 12/28/17 16:00 Urine Color Yellow (YELLOW) 12/28/17 16:00 Urine Appearance Clear (CLEAR) 12/28/17 16:00 Urine pH 5.0 (5.0 - 8.0) 12/28/17 16:00 Ur Specific [place] 1.020 (1.000-1.030) 12/28/17 16:00 Urine Protein 2+ (NEGATIVE) 12/28/17 16:00 Urine Glucose (UA) 2+ (NEGATIVE) 12/28/17 16:00 Urine Ketones Negative (NEGATIVE) 12/28/17 16:00 Urine Occult Blood 1+ (NEGATIVE) 12/28/17 16:00 Urine Nitrite Negative (NEGATIVE) 12/28/17 16:00 Urine Bilirubin Negative (NEGATIVE) 12/28/17 16:00 Urine Urobilinogen Normal (NORMAL) 12/28/17 16:00 Ur Leukocyte Esterase Negative (NEGATIVE) 12/28/17 16:00 Urine RBC 0-2 /HPF (NONE SEEN) 12/28/17 16:00 Urine WBC 0-2 /HPF (NONE SEEN) 12/28/17 16:00 Ur Squamous Epith Cells Rare /HPF (NEGATIVE) 12/28/17 16:00 Amorphous Sediment Trace /HPF (NEGATIVE) 12/28/17 16:00 Urine Bacteria Negative /HPF (NEGATIVE) 12/28/17 16:00 Urine Mucus Few /HPF (NEGATIVE) 12/28/17 16:00 Ur Culture Indicated? No/not indicated 12/28/17 16:00 - Plan (1) Right upper lobe pneumonia Status: Acute Qualifiers: Pneumonia type: due to unspecified organism Qualified Code(s): J18.1 - Lobar pneumonia, unspecified organism Plan: IV ANTIBIOTICS, RESPIRATORY TREATMENTS, SUPPLEMENTAL OXYGEN, SOLU-MEDROL 125MG IV Q6H, CONTINUE TO MONITOR (2) COPD exacerbation Status: Acute Plan: WILL CONTINUE NEB TREATMENT, VENTI-MASK, CONTINUE TO MONITOR. (3) Acute on chronic respiratory failure with hypoxia and hypercapnia Status: Acute Plan: RESPIRATORY TREATMENTS, SUPPORTIVE OXYGEN, CONTINUE TO MONITOR (4) Sepsis Status: Acute Qualifiers: Sepsis type: sepsis due to unspecified organism Qualified Code(s): A41.9 - Sepsis, unspecified organism Plan: CONTINUE IV ANTIBIOITCS, CONTINUE TO MONITOR (5) Chronic kidney disease (CKD) Status: Acute Qualifiers: Chronic kidney disease stage: unspecified stage Qualified Code(s): N18.9 - Chronic kidney disease, unspecified (6) Hypotension Status: Acute Qualifiers: Hypotension type: unspecified hypotension type Qualified Code(s): I95.9 - Hypotension, unspecified Plan: CONTINUE IV FLUIDS AND DOPAMINE. BP IMPROVING. (7) Hypoxemia Status: Acute Plan: VENTI-MASK, CONTINUE TO MONITOR. (8) SIRS (systemic inflammatory response syndrome) Status: Acute
--- NOTE | 2018-01-01 10:33 | RAD ---
History: Shortness of breath and follow-up of pneumonia Study: Portable AP chest Comparison: December 31 Findings: There is increased sub subsegmental atelectasis in the right upper lobe. The left lung is grossly clear. The heart size is normal. Impression: Increased subsegmental atelectasis in the right upper lobe over the minor fissure Reported By:
[2018-01-01 13:48] VITALS: BP 154/79
--- NOTE | 2018-02-04 23:13 | DR.CARTERD ---
- Discharge Summary for: Discharge Summary for Date of:: 01/01/18 - Admission Date Date of Admission: 12/26/17 - Admission Diagnoses Admission Diagnosis: (1) Right upper lobe pneumonia: (2) COPD exacerbation: (3) Hypotension: (4) Hypoxemia: - Discharge Date Discharge Date: 01/01/18 - Discharge Diagnoses Discharge Diagnosis: (1) Sepsis (2) Right upper lobe pneumonia (3) Acute on chronic respiratory failure with hypoxia and hypercapnia (4) SIRS (systemic inflammatory response syndrome) (5) COPD exacerbation (6) Chronic kidney disease (CKD) (7) Hypotension - Hospital Course Hospital Course: DAY ONE, PATIENT IS 62YR OLD WHITE MALE THAT WAS ADMITTED TO HOSPITAL THROUGH THE ED WITH RIGHT SIDED PNEUMONIA. PATIENT SUDDENLY DEVELOPED FEVER WITH CHILLS LAST NIGHT WITH INCREASING SOB. HE HAD NON PRODUCTIVE COUGH. TOOK NEB TREATMENT AND MEDICATION FOR FEVER. CONTNUED TO FEEL WORSE. CAME TO ED WHERE PNEUMONIA RI GHT UPPER LOBE WAS DIAGNOSE. PATIENT HAD HYPOTENSION WELL AND WAS STARTED ON IV FLUIDS AND DOPAMINE. HE WAS ADMITTED TO ICU. WE CONTINUED TO MONITOR AND TREAT PATIENT. DAY THREE, IS A 62 YEAR OLD PATIENT OF JOANIE ARGUETA WHO WAS ADMITTED FOR RIGHT SIDED PNEUMONIA, HYPOXEMIA, SIRS, HYPOTENSION, AND CHRONIC KIDNEY DISEASE. HE WAS ADMITTED TO THE INTENSIVE CARE UNIT ON THE BIPAP AND A DOPAMINE DRIP. HE WAS ALSO STARTED ON FORTAZ AND LEVAQUIN IV ON ADMISSION. TODAY, HE WAS LYING IN BED WITH EYES CLOSED. HE WAS UTILIZING THE BIPAP. HE DID AWAKEN TO VERBAL STIMULI, BUT WAS DROWSY. ON EXAMINATION, HEART WAS REGULAR IN RATE AND RHYTHM. BILATERAL LUNGS WERE NOTED WITH SCATTERED WHEEZING AND RHONCHI THROUGHOUT. ABDOMEN WAS ROUND, SOFT, AND NON-TENDER WITH NORMAL BOWEL SOUNDS NOTED IN ALL QUADRANTS. HIS VITALS THIS MORNING WERE 97.5-92-12-88%BIPAP-99/60. HIS BIPAP SETTING WERE FIO2-65%,IPAP-20,EPAP-10,RATE-25 AT THIS TIME. LABS WERE OBTAINED. ABNORMAL LAB VALUES INCLUDED THE FOLLOWING: WBC 18.1, RBC 4.25, HCT 41.3, BUN 31, CREATININE 1.41, GLUCOSE 158, CALCIUM 7.6, TOTAL PROTEIN 6.3, ALBUMIN 2.1. TODAYS ABG REVEALS: PH 7.180, PC02 82.0, P02 62.0, HC03 30.6, 02 SATURATION 85.0. TODAYS CHEST XRAY REVEALS: Consolidating pneumonia involving the right upper and right lower lobes. Small right pleural effusion. WE HAD RESPIRATORY THERAPY ADJUST BIPAP SETTINGS AND CHECK AN ABG EVERY 2 HOURS UNTIL STABLE. WE CONTINUED WITH IV ANTIBIOTICS, RESPIRATORY TREATMENTS, AND CURRENT PLAN OF CARE. WE FOLLOWED UP WITH AM LABS AND CHEST XRAY AND CONTINUED TO MONITOR. DAY FIVE, HE HAS BEEN TRANSITIONED TO HIGH FLOW HEADED OXYGEN VIA NASAL CANNULA. THE DOPAMINE DRIP WAS DISCONTINUED. HE WAS SITTING UP IN THE RECLINER ON MORNING ROUNDS. HE COMPLAINED OF SHORTNESS OF BREATH AND COUGH. ON EXAMINATION, HEART WAS REGULAR IN RATE AND RHYTHM. BILATERAL LUNGS WERE NOTED WITH SCATTERED WHEEZING AND RHONCHI THROUGHOUT. ABDOMEN WAS ROUND, SOFT, AND NON-TENDER WITH NORMAL BOWEL SOUNDS NOTED IN ALL QUADRANTS. HIS VITALS THIS MORNING WERE 99.0-78-18-91%NC-122/78. LABS WERE OBTAINED. ABNORMAL LAB VALUES INCLUDED THE FOLLOWING: WBC 15.5, RBC 3.91, HGB 12.5, HCT 37.8, CHLORIDE 109, BUN 32, GLUCOSE 191, CALCIUM 7.8, AST 11, TOTAL PROTEIN 5.9, ALBUMIN 1.8. A CHEST CTA WAS OBTAINED THIS MORNING AND REVEALED: No evidence for acute pulmonary thromboembolic disease. No change dense consolidating alveolar pneumonia involving the right upper and right lower lobes. Bilateral pleural effusions right greater than left with underlying compressive atelectasis in the lower lobes bilaterally. WE STARTED THEOPHYLLINE 200MG PO BID. WE CONTINUED WITH IV ANTIBIOTICS, RESPIRATORY TREATMENTS, AND CURRENT PLAN OF CARE. WE FOLLOWED UP WITH AM LABS AND CHEST XRAY AND CONTINUED TO MONITOR. DAY SIX, HE REMAINED IN THE INTENSIVE CARE UNIT ON THE VENTIMASK. HE WAS SITTING UP IN THE RECLINER ON MORNING ROUNDS. HE CONTINUED WITH COMPLAINTS OF SHORTNESS OF BREATH AND COUGH. HE WAS NON-COMPLAINT WITH HEATED HIGH FLOW OXYGEN YESTERDAY AND WAS PLACED ON THE VENTI MASK. HIS SATURATIONS REMAINED IN THE HIGH 80S TO LOW 90S. ON EXAMINATION, HEART WAS REGULAR IN RATE AND RHYTHM. BILATERAL LUNGS WERE NOTED WITH SCATTERED WHEEZING AND RHONCHI THROUGHOUT. ABDOMEN WAS ROUND, SOFT, AND NON-TENDER WITH NORMAL BOWEL SOUNDS NOTED IN ALL QUADRANTS. HIS VITALS THIS MORNING WERE 98.1-73-23-92%-129/61. LABS WERE OBTAINED. ABNORMAL LAB VALUES INCLUDED THE FOLLOWING: RBC 4.21, HCT 40.2, SODIUM 147, CHLORIDE 110, BUN 31, GLUCOSE 271, CALCIUM 7.7, AST 8, TOTAL PROTEIN 6.0, ALBUMIN 2.2. A CHEST CTA WAS OBTAINED THIS MORNING AND REVEALED: Some improvement in the right upper and right lower lobe pneumonia is being followed. SPUTUM CULTURE REVEALED GROWTH OF STREPTOCOCCUS PNEUMONIAE. HE WAS RECEIVING IV ANTIBIOTICS, RESPIRATORY TREATMENTS, SUPPLEMENTAL OXYGEN, IV STEROIDS, AND WAS STARTED ON THEOPHYLLINE YESTERDAY. WE CONTINUED WITH CURRENT PLAN OF CARE TODAY. WE FOLLOWED UP WITH AM LABS AND CHEST XRAY AND CONTINUED TO MONITOR. DAY SEVEN, PATIENT WAS SITTING UP IN BED ALERT AND ORIENTED THIS AM. NO COMPLAINTS VOICED. PATIENT STATED HE WAS FEELING BETTER THIS MORNING. NO SIGNS AND SYMPTOMS OF ACUTE DISTRESS NOTED. CASE MANAGEMENT SET PATIENT UP WITH HOME OXYGEN. LABS WERE IN NORMAL RANGE FOR PATIENT AT THIS TIME. VITALS ARE STABLE. O2 SATURATION WAS UP TO 92% ON NASAL CANNULA AT 4L. LUNG SOUNDS WERE NOTED TO BE DIMINISHED ON AUSCULTATION. WE PLANNED FOR DISCHARGE. INSTRUCTIONS WERE DISCUSSED WITH PATIENT AND FAMILY, BOTH VOICED UNDERSTANDING. PATIENT WAS DISCHARGED HOME IN STABLE CONDITION WITH FAMILY. 0 - Discharge Medications Discharge Medications: Home Medication List tamsulosin 0.4 mg PO HS 12/26/17 [History] budesonide-formoterol [Symbicort] 2 puff INHALATION BID #1 g 01/01/18 [Rx] levofloxacin [Levaquin] 750 mg PO QDAY #7 tab 01/01/18 [Rx] prednisone 10 mg PO BID #60 tab 01/01/18 [Rx] tiotropium bromide [Spiriva with HandiHaler] 1 cap INHALATION QDAY #1 inh 01/01/18 [Rx] Prescriptions: budesonide-formoterol [Symbicort] Aj Robles levofloxacin [Levaquin] Aj Robles prednisone Aj Robles tiotropium bromide [Spiriva with HandiHaler] Aj Robles - Discharge Disposition Discharge Disposition: PATIENT TO FOLLOW UP IN OUR OFFICE IN ONE WEEK.
== END 2018-01-01 13:40 | disposition home or self-care (01) | DRG 193 ==
LOC: ER 11:55 → MED/SURG 11:55 → OBSVTOIN 14:20 → ICU 15:00
PROVIDERS: ADMIT Emergency Medicine; ATTEND Internal Medicine
CPT/HCPCS: 36415; 36600; 71010; 71045; 71250; 71275; 80053; 81001; 82550; 82553; 82803; 83605; 83735; 83880; 84132; 84484; 85025; 85378; 85610; 85730; 87040; 87070; 87077; 87186; 87205; 93005; 93041; 94640; 94660; 94669; 94760; 96365; 96367; 96374; 96375; 97163; 97167; 97530; 99221; 99231; 99284; 99285; A4222; A4618; A7030; G0378; J0696; J1265; J1650; J1940; J1956; J2270; J2405; J2543; J2550; J2920; J2930; J3475; J3490; J7030; J7050; J7608; J7620; J7626; S0195